=== PATIENT | male | born 1950 | race Caucasian/White ===

== ENCOUNTER 2021-03-26 15:45 | Inpatient (IN) | payer MEDICARE ==
[2021-03-26] MEDS ORDERED: solu-MEDROL 125 MG, Sterile H2O 10 ml 2 ML IV ONE ×2 (16:14)
[2021-03-26 16:21] LABS: Hematocrit 37.6 % (42-50); Hemoglobin 12.9 gm/dl (12.5-18.0); Mean Cell Volume 88.1 fl (78-100); Mean Corpuscular Hemoglobin 30.2 pg (26-32); Mean Corpuscular Hgb Concent. 34.3 g/dl (32-36); Platelet Count 197 K/mm3 (150-450); Red Blood Count 4.27 M/mm3 (4.1-5.6); Red Cell Distribution Width 14.5 % (11.5-14.0); White Blood Count 15.7 K/mm3 (4.0-10.5)
[2021-03-26] MEDS ORDERED: Sterile H2O 10 ml IJ ONE (16:21)
[2021-03-26] MEDS ORDERED: solu-MEDROL ONE (16:21)
[2021-03-26 16:39] LABS: ALBUMIN 3.1 g/dL (3.5-5.0); ANION GAP 14.2 MEQ/L (5-15); BILIRUBIN,TOTAL 1.1 mg/dL (0.2-1.3); Calcium 8.8 mg/dL (8.4-10.2); Creatinine 1 1.55 mg/dL (0.66-1.25); EST GLOMERULAR FILTRATION RATE 47.3 ML/MIN; Potassium 3.3 mmol/L (3.5-5.1); Total Protein 5.9 g/dL (6.3-8.2)
[2021-03-26 17:19] LABS: BAND 2 % (0.0-2.0); Lymphocytes 1 % (24-44); Monocyte 5 % (0.0-12.0); Neutrophils 92 % (36.-66.); Total Cells Counted 100
[2021-03-26 17:20] LABS: Platelet Estimate NORMAL (NORMAL)
--- NOTE | 2021-03-26 19:20 | ERPHSYRPT ---
- History of Present Illness Time Seen by Provider: 03/26/21 15:50 Source: patient Exam Limitations: no limitations Patient Subjective Stated Complaint: Pt states "I have been short of breath for a couple of days now." Triage Nursing Assessment: Pt presented alert and oriented X3, skin wpd Pt ambulates with an upright steady gait, able to speak in clear full sentences pt slightly tachypneic. Physician History: Patient is a 70-year-old male presents to our ED for evaluation of shortness of breath that has been ongoing for 2 days. Shortness of breath is associated with a cough and generalized weakness. Upon arrival patient was wheezing. Patient denies fevers. Patient had a home Covid test that was negative. Patient symptoms are progressive. Symptoms are moderate in intensity. No specific worsening improving factors. Patient voices no other complaints concerns at this time. Timing/Duration: day(s) (2 days) Activities at Onset: activity Severity of Dyspnea-Max: moderate Severity of Dyspnea-Current: mild Possible Cause: unknown cause (Patient has history of COPD. Patient believes he is having exacerbation.) Allergies/Adverse Reactions: No Known Drug Allergies Allergy (Verified 03/26/21 15:53) Home Medications: Diltiazem HCl [Dilt-Xr] 180 mg PO DAILY 03/26/21 [History] Losartan Potassium 100 mg PO DAILY 03/26/21 [History] Pravastatin Sodium 40 mg PO DAILY 03/26/21 [History] Tizanidine HCl 4 mg [Zanaflex 4 MG] 4 mg PO DAILY 03/26/21 [History] Hx Tetanus, Diphtheria Vaccination/Date Given: No Hx Influenza Vaccination/Date Given: Yes Hx Pneumococcal Vaccination/Date Given: No Immunizations Up to Date: Yes Travel Risk - International Travel Have you traveled outside of the country in past 3 weeks: No - Coronavirus Screening Are you exhibiting any of the following symptoms?: No Close contact with a COVID-19 positive Pt in past 14-21 Days: No - Vaccine Status Have you recieved a Covid-19 vaccination: Yes Metal Gauge Maker: Moderna - Vaccination Dates Date of 2cond Vaccination (if applicable): 10/07/2020 - Review of Systems Constitutional: No Symptoms, No Fever, No Chills Eyes: No Symptoms Ears, Nose, & Throat: No Symptoms Respiratory: No Symptoms, No Cough, No Dyspnea Cardiac: No Symptoms, No Chest Pain, No Edema, No Syncope Abdominal/Gastrointestinal: No Symptoms, No Abdominal Pain, No Nausea, No Vom iting, No Diarrhea Genitourinary Symptoms: No Symptoms, No Dysuria Musculoskeletal: No Symptoms, No Back Pain, No Neck Pain Skin: No Symptoms, No Rash Neurological: No Symptoms, No Dizziness, No Focal Weakness, No Sensory Changes Psychological: No Symptoms Endocrine: No Symptoms Hematologic/Lymphatic: No Symptoms Immunological/Allergic: No Symptoms All Other Systems: Reviewed and Negative - Past Medical History Pertinent Past Medical History: Yes Neurological History: No Pertinent History ENT History: No Pertinent History Cardiac History: Coronary Artery Disease, Hypertension Respiratory History: COPD Endocrine Medical History: No Pertinent History Musculoskeletal History: No Pertinent History GI Medical History: No Pertinent History History: No Pertinent History Psycho-Social History: No Pertinent History Male Reproductive Disorders: No Pertinent History - Past Surgical History Past Surgical History: Yes Other Surgical History: cabg. prostate - Social History Smoking Status: Former smoker Exposure to second hand smoke: Yes Drug Use: none Patient Lives Alone: No - Nursing Vital Signs Nursing Vital Signs: Initial Vital Signs Temperature 97.8 F 03/26/21 15:45 Pulse Rate 110 H 03/26/21 15:45 Respiratory Rate 24 03/26/21 15:45 Blood Pressure 118/70 03/26/21 15:45 O2 Sat by Pulse Oximetry 90 L 03/26/21 15:45 Pain Scale Pain Intensity 0 - Physical Exam General Appearance: no apparent distress, alert Eye Exam: PERRL/EOMI Neck Exam: normal inspection, supple Respiratory Exam: airway intact, diminished breath sounds, wheezing Cardiovascular/Chest Exam: normal heart sounds, regular rate/rhythm Abdominal/Gastrointestinal Exam: soft, No tenderness, No distention, No mass Extremity Exam: non-tender, normal range of motion, normal inspection, no calf tenderness, no pedal edema Neurologic Exam: alert, oriented x 3, cooperative, cashier greeter II-XII nml as tested, sensation nml, No motor deficits Skin Exam: normal color, warm, No dry Lymphatic Exam: No adenopathy SpO2 Interpretation: normal SpO2: 93 O2 Delivery: Room Air - Course Nursing assessment & vital signs reviewed: Yes EKG Interpreted by Me: RATE (110), Sinus Tach, NORMAL AXIS, NORMAL INTERVALS - CT Exams Chest CT Interpretation: Tele-radiologist Report (No comps. Negative for PE. Advanced emphysema. Multifocal left lung consolidating and nonconsolidating airspace disease with small effusion.) Ordered Tests: Active Orders 24 hr Category Date Time Status Commercial Singer STAT Care 03/26/21 16:13 Active EKG-ER Only STAT Care 03/26/21 16:12 Active IV Insertion STAT Care 03/26/21 16:12 Active Pulse Oximetry (ED) STAT Care 03/26/21 16:12 Active CHEST WITH CONTRAST [CT] Stat Exams 03/26/21 17:16 Taken BLOOD CULTURE Stat Lab 03/26/21 16:25 Received CBC W DIFF Stat Lab 03/26/21 16:12 Completed CMP Stat Lab 03/26/21 16:12 Completed D-DIMER QUANTITATIVE Stat Lab 03/26/21 16:12 Completed Manual Differential NC Stat Lab 03/26/21 16:12 Completed NT PRO BNP Stat Lab 03/26/21 16:12 Completed TROPONIN Q3H Lab 03/26/21 16:15 Completed TROPONIN Q3H Lab 03/26/21 19:15 Completed TROPONIN Q3H Lab 03/26/21 22:15 Ordered TROPONIN Q3H Lab 03/27/21 01:15 Ordered TROPONIN Q3H Lab 03/27/21 04:15 Ordered Respiratory Therapy Assessment DAILY RT 03/26/21 21:43 Active Transfer Order Routine Transfer 03/26/21 Ordered Medication Summary Generic Name Dose Route Start Last Admin Trade Name Freq PRN Reason Stop Dose Admin Azithromycin / Sodium Chloride 250 mls @ 125 mls/hr 03/26/21 20:08 IV 03/26/21 22:07 STAT ONE Discontinued Medications Generic Name Dose Route Start Last Admin Trade Name Freq PRN Reason Stop Dose Admin Albuterol/Ipratropium 3 ml 03/26/21 19:30 03/26/21 20:10 Duoneb 0.5-3 Mg/3 Ml Neb IH 03/26/21 19:31 3 ml STAT ONE Administration Albuterol/Ipratropium Confirm 03/26/21 20:23 Duoneb 0.5-3 Mg/3 Ml Neb Administered 03/26/21 20:24 Dose 3 ml IH .STK-MED ONE Methylprednisolone Sodium 0 mg 03/26/21 16:14 03/26/21 16:24 Succinate 125 mg/ Sterile IV 03/26/21 16:15 125 mg Water 2 ml STAT ONE Administration Ceftriaxone Sodium/Dextrose 2 g in 50 mls @ 100 mls/hr 03/26/21 20:08 03/26/21 20:29 Rocephin 2 Gm-D5w 50ml Bag IV 03/26/21 20:37 100 mls/hr STAT STA 100 mls/hr Administration Ceftriaxone Sodium/Dextrose Confirm 03/26/21 20:27 Rocephin 2 Gm-D5w 50ml Bag Administered 03/26/21 20:28 Dose 2 g in 50 mls @ ud IV .STK-MED ONE Methylprednisolone Sodium Succinate Confirm 03/26/21 16:21 Solu-Medrol Administered 03/26/21 16:22 Dose 125 mg .ROUTE .STK-MED ONE Potassium Chloride 40 meq 03/26/21 22:12 Klor Con 10 Meq PO 03/26/21 22:13 STAT ONE Sterile Water Confirm 03/26/21 16:21 Sterile H2o 10 Ml Administered 03/26/21 16:22 Dose 10 ml IJ .STK-MED ONE Lab/Rad Data: Laboratory Result Diagrams 03/26/21 16:12 03/26/21 16:12 Laboratory Results 03/26/21 03/26/21 03/26/21 Range/Units 20:20 19:15 16:15 WBC (4.0-10.5) K/mm3 RBC (4.1-5.6) M/mm3 Hgb (12.5-18.0) gm/dl Hct (42-50) % MCV (78-100) fl MCH (26-32) pg MCHC (32-36) g/dl RDW (11.5-14.0) % Plt Count (150-450) K/mm3 MPV (7.5-11.0) fl Segmented Neutrophils (36.-66.) % Band Neutrophils (0.0-2.0) % Lymphocytes (Manual) (24-44) % Monocytes (Manual) (0.0-12.0) % Platelet Estimate (NORMAL) RBC Morphology D-Dimer (215-500) ng/mL Sodium (137-145) mmol/L Potassium (3.5-5.1) mmol/L Chloride (98-107) mmol/L Carbon Dioxide (22-30) mmol/L Anion Gap (5-15) MEQ/L BUN (9-20) mg/dL Creatinine (0.66-1.25) mg/dL Estimated GFR ML/MIN Glucose (74-106) mg/dL Calcium (8.4-10.2) mg/dL Total Bilirubin (0.2-1.3) mg/dL AST (17-59) U/L ALT (0-50) U/L Alkaline Phosphatase (38-126) U/L Troponin I < 0.012 < 0.012 (0.000-0.034) ng/mL NT-Pro-B Natriuret Pep (0-900) pg/mL Serum Total Protein (6.3-8.2) g/dL Albumin (3.5-5.0) g/dL SARS-CoV-2 (PCR) NEGATIVE (NEGATIVE) 03/26/21 03/26/21 03/26/21 Range/Units 16:12 16:12 16:12 WBC 15.7 H (4.0-10.5) K/mm3 RBC 4.27 (4.1-5.6) M/mm3 Hgb 12.9 (12.5-18.0) gm/dl Hct 37.6 L (42-50) % MCV 88.1 (78-100) fl MCH 30.2 (26-32) pg MCHC 34.3 (32-36) g/dl RDW 14.5 H (11.5-14.0) % Plt Count 197 (150-450) K/mm3 MPV 9.0 (7.5-11.0) fl Segmented Neutrophils 92 H (36.-66.) % Band Neutrophils 2 (0.0-2.0) % Lymphocytes (Manual) 1 L (24-44) % Monocytes (Manual) 5 (0.0-12.0) % Platelet Estimate NORMAL (NORMAL) RBC Morphology NORMAL D-Dimer 2155 H* (215-500) ng/mL Sodium 129 L (137-145) mmol/L Potassium 3.3 L (3.5-5.1) mmol/L Chloride 101 (98-107) mmol/L Carbon Dioxide 17 L (22-30) mmol/L Anion Gap 14.2 (5-15) MEQ/L BUN 33 H (9-20) mg/dL Creatinine 1.55 H (0.66-1.25) mg/dL Estimated GFR 47.3 ML/MIN Glucose 142 H (74-106) mg/dL Calcium 8.8 (8.4-10.2) mg/dL Total Bilirubin 1.10 (0.2-1.3) mg/dL AST 95 H (17-59) U/L ALT 37 (0-50) U/L Alkaline Phosphatase 67 (38-126) U/L Troponin I (0.000-0.034) ng/mL NT-Pro-B Natriuret Pep 662 (0-900) pg/mL Serum Total Protein 5.9 L (6.3-8.2) g/dL Albumin 3.1 L (3.5-5.0) g/dL SARS-CoV-2 (PCR) (NEGATIVE) - Progress Progress: improved Air Movement: good Progress Note: Case discussed with Dr. Winchester who accepts admission to observation. Patient is Covid negative. Patient treated for COPD exacerbation. CTA negative for PE. However there is airspace disease consistent with pneumonia. Antibiotics infused. Patient reassessed he feels much better. Patient agrees to admission to [facility] for further evaluation and treatment. Portions of this note were created with voice recognition technology. There may be grammatical, spelling, punctuation or sound alike errors 03/26/21 22:11 Hyponatremia and hypokalemia. Patient received oral dose of potassium and IV fluids. Troponin negative x2. 03/26/21 22:14 03/26/21 22:14 Blood Culture(s) Obtained: Yes Antibiotics given: Yes Discussed with : Reji Will see patient in: hospital (observation) Counseled pt/family regarding: lab results, diagnosis, rad results - Departure Departure Disposition: Observation Clinical Impression: Pneumonia, COPD exacerbation, Pleural effusion, Hypokalemia, Leukocytosis, Hyponatremia Condition: Stable Critical Care Time: No Referrals: CAREY WINCHESTER [Primary Care Provider] - Instructions: Chronic Obstructive Pulmonary Disease
[2021-03-26] MEDS ORDERED: DUONEB 0.5-3 MG/3 ml Neb IH ONE ×2 (19:30→20:23)
[2021-03-26] MEDS ORDERED: ZITHROMAX IV*** 0 MG in Sodium Chloride 0.9% 250 ML 250 ML IV ONE (20:08)
[2021-03-26] MEDS ORDERED: ROCEPHIN 2 Gm-D5w 50ML BAG** 2 G/50 ML IVPB IV STA (20:08)
[2021-03-26] MEDS ORDERED: ROCEPHIN 2 Gm-D5w 50ML BAG** 2 G/50 ML IVPB IV ONE (20:27)
[2021-03-26] MEDS ORDERED: Klor Con 10 MEQ PO ONE ×2 (22:12→22:15)
[2021-03-26] MEDS ORDERED: Sodium Chloride 0.9% 1000 ML 1,000 ML IV SCH (22:15)
[2021-03-26] MEDS: DUONEB 0.5-3 MG/3 ml Neb IH SCH (23:29)
[2021-03-27] MEDS ORDERED: Sterile H2O 10 ml IJ ONE ×2 (00:51→06:32)
[2021-03-27] MEDS ORDERED: solu-MEDROL ONE ×2 (00:51→06:32)
[2021-03-27] MEDS: solu-MEDROL 60 MG, Sterile H2O 10 ml 2 ML IV SCH ×8 (00:59→18:11)
[2021-03-27] MEDS: ENOXAPARIN SODIUM SQ SCH ×2 (01:33→09:52)
[2021-03-27] MEDS: DUONEB 0.5-3 MG/3 ml Neb IH SCH ×6 (03:19→23:10)
[2021-03-27 06:26] LABS: Hematocrit 38.6 % (42-50); Hemoglobin 13.2 gm/dl (12.5-18.0); Mean Cell Volume 89.1 fl (78-100); Mean Corpuscular Hemoglobin 30.5 pg (26-32); Mean Corpuscular Hgb Concent. 34.2 g/dl (32-36); Mean Platelet Volume 9.1 fl (7.5-11.0); Platelet Count 184 K/mm3 (150-450); Red Blood Count 4.33 M/mm3 (4.1-5.6); Red Cell Distribution Width 14.9 % (11.5-14.0); White Blood Count 11.5 K/mm3 (4.0-10.5)
[2021-03-27 06:58] LABS: ALBUMIN 2.9 g/dL (3.5-5.0); ALKALINE PHOSPHATASE 69 U/L (38-126); ANION GAP 12.8 MEQ/L (5-15); BLOOD UREA NITROGEN 29 mg/dL (9-20); CHLORIDE 105 mmol/L (98-107); Calcium 8.8 mg/dL (8.4-10.2); Carbon Dioxide 20 mmol/L (22-30); Creatinine 1 1.18 mg/dL (0.66-1.25); EST GLOMERULAR FILTRATION RATE > 60.0 ML/MIN; Glucose 169 mg/dL (74-106); Potassium 3.8 mmol/L (3.5-5.1); SGOT/AST 45 U/L (17-59); SGPT/ALT 38 U/L (0-50); SODIUM 134 mmol/L (137-145); Total Protein 5.7 g/dL (6.3-8.2)
[2021-03-27] MEDS: PATIENT OWN MEDICATION IH SCH ×2 (07:00→17:53)
[2021-03-27] MEDS ORDERED: Zithromax 500 MG/ 250 ML NaCl Premix 500 MG/250 ML IVPB IV SCH (07:00)
[2021-03-27] MEDS ORDERED: Zithromax 500 MG/ 250 ML NaCl Premix 500 MG/250 ML IVPB IV ONE (07:00)
--- NOTE | 2021-03-27 07:53 | PCM.HP ---
History of Present Illness - Chief Complaint Chief Complaint: COPD exacerbation, pneumaonia, hypokalemia, hyponatremia, l eukocytosis, ple History of Present Illness: is a 70 year old male patient of Dr Winchester who presented to the ER with a several day history of shortness of breath, wheezing and cough with sputum production, unsure if sputum is clear. no fever, not on oxygen, improved since admission. - Review of Systems Constitutional: No Fever, No Chills Respiratory: Cough, Short Of Breath Cardiac: No Symptoms Abdominal/Gastrointestinal: No Abdominal Pain, No Nausea, No Vomiting, No Diarrhea Genitourinary Symptoms: No Dysuria All Other Systems: Reviewed and Negative Medications & Allergies Home Medications: Home Medication List Diltiazem HCl [Dilt-Xr] 180 mg PO DAILY 03/26/21 [History Confirmed 03/26/21] Losartan Potassium 100 mg PO DAILY 03/26/21 [History Confirmed 03/26/21] Allergies/Adverse Reactions: Allergies Allergy/AdvReac Type Severity Reaction Status Date / Time No Known Drug Allergies Allergy Verified 03/26/21 15:53 - Past Medical History Past Medical History: Yes Neurological History: No Pertinent History ENT History: No Pertinent History Cardiac History: Coronary Artery Disease, Hypertension Respiratory History: COPD Endocrine Medical History: No Pertinent History Musculoskelatal History: No Pertinent History GI Medical History: No Pertinent History History: No Pertinent History Pyscho-Social History: No Pertinent History Male Reproductive Disorders: No Pertinent History - Past Surgical History Past Surgical History: Yes Neuro Surgical History: No Pertinent History Cardiac History: CABG Respiratory Surgery: No Pertinent History GI Surgical History: No Pertinent History Genitourinary Surgical Hx: No Pertinent History Musculskeletal Surgical Hx: No Pertinent History Male Surgical History: No Pertinent History Other Surgical History: cabg. prostate - Social History Smoking Status: Former smoker How long have you smoked: 50 yrs Exposure to second hand smoke: Yes Alcohol: Rarely Drug Use: none - Physical Exam Vital Signs: Vital Signs - 24 hr Temp Pulse Resp BP Pulse Ox 03/27/21 06:53 85 16 94 L 03/27/21 05:04 97.4 F 82 18 98/52 95 03/27/21 04:00 98.0 F 74 124/64 90 L 03/26/21 23:39 90 L 03/26/21 23:32 74 16 90 L 03/26/21 23:15 98.0 F 73 28 H 124/64 95 03/26/21 22:18 93 L 03/26/21 20:15 72 18 95 03/26/21 20:00 71 20 95/61 95 03/26/21 19:00 80 20 90/57 98 03/26/21 17:16 90 24 81/52 93 L 03/26/21 16:20 94 L 03/26/21 15:45 97.8 F 110 H 24 118/70 90 L General Appearance: no apparent distress, alert Neurologic Exam: alert, oriented x 3, cooperative, normal mood/affect, nml cerebellar function, nml station & gait, sensation nml, No motor deficits Respiratory Exam: prolonged expirations, rhonchi Cardiovascular Exam: regular rate/rhythm, normal heart sounds, normal peripheral pulses Gastrointestinal/Abdomen Exam: soft, normal bowel sounds, No tenderness, No mass Extremity Exam: normal inspection, normal range of motion, pelvis stable Skin Exam: normal color, warm, dry, No rash Results - Labs Lab/Micro Results: Lab Results-Last 24 Hours 03/26/21 03/26/21 03/26/21 Range/Units 16:12 16:12 16:12 WBC 15.7 H (4.0-10.5) K/mm3 RBC 4.27 (4.1-5.6) M/mm3 Hgb 12.9 (12.5-18.0) gm/dl Hct 37.6 L (42-50) % MCV 88.1 (78-100) fl MCH 30.2 (26-32) pg MCHC 34.3 (32-36) g/dl RDW 14.5 H (11.5-14.0) % Plt Count 197 (150-450) K/mm3 MPV 9.0 (7.5-11.0) fl Segmented Neutrophils 92 H (36.-66.) % Band Neutrophils 2 (0.0-2.0) % Lymphocytes (Manual) 1 L (24-44) % Monocytes (Manual) 5 (0.0-12.0) % Platelet Estimate NORMAL (NORMAL) RBC Morphology NORMAL D-Dimer 2155 H* (215-500) ng/mL Sodium 129 L (137-145) mmol/L Potassium 3.3 L (3.5-5.1) mmol/L Chloride 101 (98-107) mmol/L Carbon Dioxide 17 L (22-30) mmol/L Anion Gap 14.2 (5-15) MEQ/L BUN 33 H (9-20) mg/dL Creatinine 1.55 H (0.66-1.25) mg/dL Estimated GFR 47.3 ML/MIN Glucose 142 H (74-106) mg/dL Calcium 8.8 (8.4-10.2) mg/dL Total Bilirubin 1.10 (0.2-1.3) mg/dL AST 95 H (17-59) U/L ALT 37 (0-50) U/L Alkaline Phosphatase 67 (38-126) U/L Troponin I (0.000-0.034) ng/mL NT-Pro-B Natriuret Pep 662 (0-900) pg/mL Serum Total Protein 5.9 L (6.3-8.2) g/dL Albumin 3.1 L (3.5-5.0) g/dL SARS-CoV-2 (PCR) (NEGATIVE) 03/26/21 03/26/21 03/26/21 Range/Units 16:15 19:15 20:20 WBC (4.0-10.5) K/mm3 RBC (4.1-5.6) M/mm3 Hgb (12.5-18.0) gm/dl Hct (42-50) % MCV (78-100) fl MCH (26-32) pg MCHC (32-36) g/dl RDW (11.5-14.0) % Plt Count (150-450) K/mm3 MPV (7.5-11.0) fl Segmented Neutrophils (36.-66.) % Band Neutrophils (0.0-2.0) % Lymphocytes (Manual) (24-44) % Monocytes (Manual) (0.0-12.0) % Platelet Estimate (NORMAL) RBC Morphology D-Dimer (215-500) ng/mL Sodium (137-145) mmol/L Potassium (3.5-5.1) mmol/L Chloride (98-107) mmol/L Carbon Dioxide (22-30) mmol/L Anion Gap (5-15) MEQ/L BUN (9-20) mg/dL Creatinine (0.66-1.25) mg/dL Estimated GFR ML/MIN Glucose (74-106) mg/dL Calcium (8.4-10.2) mg/dL Total Bilirubin (0.2-1.3) mg/dL AST (17-59) U/L ALT (0-50) U/L Alkaline Phosphatase (38-126) U/L Troponin I < 0.012 < 0.012 (0.000-0.034) ng/mL NT-Pro-B Natriuret Pep (0-900) pg/mL Serum Total Protein (6.3-8.2) g/dL Albumin (3.5-5.0) g/dL SARS-CoV-2 (PCR) NEGATIVE (NEGATIVE) 03/26/21 03/27/21 03/27/21 Range/Units 21:50 05:00 05:20 WBC 11.5 H (4.0-10.5) K/mm3 RBC 4.33 (4.1-5.6) M/mm3 Hgb 13.2 (12.5-18.0) gm/dl Hct 38.6 L (42-50) % MCV 89.1 (78-100) fl MCH 30.5 (26-32) pg MCHC 34.2 (32-36) g/dl RDW 14.9 H (11.5-14.0) % Plt Count 184 (150-450) K/mm3 MPV 9.1 (7.5-11.0) fl Segmented Neutrophils (36.-66.) % Band Neutrophils (0.0-2.0) % Lymphocytes (Manual) (24-44) % Monocytes (Manual) (0.0-12.0) % Platelet Estimate (NORMAL) RBC Morphology D-Dimer (215-500) ng/mL Sodium 134 L (137-145) mmol/L Potassium 3.8 (3.5-5.1) mmol/L Chloride 105 (98-107) mmol/L Carbon Dioxide 20 L (22-30) mmol/L Anion Gap 12.8 (5-15) MEQ/L BUN 29 H (9-20) mg/dL Creatinine 1.18 (0.66-1.25) mg/dL Estimated GFR > 60.0 ML/MIN Glucose 169 H (74-106) mg/dL Calcium 8.8 (8.4-10.2) mg/dL Total Bilirubin 0.60 (0.2-1.3) mg/dL AST 45 (17-59) U/L ALT 38 (0-50) U/L Alkaline Phosphatase 69 (38-126) U/L Troponin I < 0.012 (0.000-0.034) ng/mL NT-Pro-B Natriuret Pep (0-900) pg/mL Serum Total Protein 5.7 L (6.3-8.2) g/dL Albumin 2.9 L (3.5-5.0) g/dL SARS-CoV-2 (PCR) (NEGATIVE) - Radiology Impressions Radiology Exams & Impressions: Radiology Procedures Category Date Time Status CHEST WITH CONTRAST [CT] Stat Exams 03/26/21 17:16 Taken - Other Procedures and Tests Respiratory Therapy 03/26/21 21:43 Respiratory Therapy Assessment DAILY 03/27/21 07:05 Respiratory MDI BID Assessment/Plan (1) Pneumonia Current Visit: Yes Status: Acute Assessment & Plan: continue rocephin/zithromax, nebs Code(s): J18.9 - PNEUMONIA, UNSPECIFIED ORGANISM (2) COPD exacerbation Current Visit: Yes Status: Acute Assessment & Plan: steroids and nebs, abx as above Code(s): J44.1 - CHRONIC OBSTRUCTIVE PULMONARY DISEASE W (ACUTE) EXACERBATION (3) Hypokalemia Current Visit: Yes Status: Acute Assessment & Plan: corrected on admission Code(s): E87.6 - HYPOKALEMIA (4) Hyponatremia Current Visit: Yes Status: Acute Assessment & Plan: resolving Code(s): E87.1 - HYPO-OSMOLALITY AND HYPONATREMIA
[2021-03-27] MEDS: Sodium Chloride 0.9% W/ 20 mEq KCl/LITER 1,000 ML IV SCH ×2 (08:24→18:49)
--- NOTE | 2021-03-27 08:46 | XRAY ---
Indication: Positive Covid 19. Elevated d-dimer. Multiple contiguous axial images obtained through the chest using 100 cc Isovue 370 contrast and PE protocol. Comparison: None There is good opacification of the pulmonary arteries to include the lobar and segmental branches. No pulmonary embolus. Heart not enlarged with CABG surgery. Aorta is moderately arteriosclerotic without aneurysm/dissection. No pathologic mediastinal/hilar lymphadenopathy. Lungs demonstrates diffuse advanced pulmonary emphysema with scattered fibrosis/scarring and tiny right upper lobe calcified granuloma. Left lung demonstrates diffuse multifocal consolidating and nonconsolidating airspace disease with small effusion. Bony thorax intact with sternotomy wires. Limited upper abdomen unremarkable. Impression: 1. Pulmonary emphysema. 2. Multifocal left lung consolidating/nonconsolidating airspace disease with small effusion. 3. Diffuse pulmonary emphysema.
[2021-03-27] MEDS: ROCEPHIN 1 Gm-D5w 50 ml Bag** 1 G/50 ML IVPB IV SCH (09:53)
[2021-03-27] MEDS: Cardizem CD 180 MG PO SCH (09:53)
[2021-03-27] MEDS ORDERED: NON-FORMULARY ITEM (Losartan Potassium [Losartan Potassium] 100 MG) PO SCH (10:00)
[2021-03-27] MEDS ORDERED: DILTIAZEM HCL 180 MG PO SCH (10:00)
[2021-03-27] MEDS: Cozaar 50 MG PO SCH (11:54)
[2021-03-28] MEDS: solu-MEDROL 60 MG, Sterile H2O 10 ml 2 ML IV SCH ×8 (01:50→18:22)
[2021-03-28] MEDS: DUONEB 0.5-3 MG/3 ml Neb IH SCH ×6 (02:51→23:56)
[2021-03-28] MEDS: Sodium Chloride 0.9% W/ 20 mEq KCl/LITER 1,000 ML IV SCH ×2 (04:38→18:22)
[2021-03-28 06:10] LABS: Hemoglobin 11.6 gm/dl (12.5-18.0); Mean Cell Volume 89.3 fl (78-100); Mean Corpuscular Hemoglobin 29.6 pg (26-32); Mean Corpuscular Hgb Concent. 33.1 g/dl (32-36); Mean Platelet Volume 9.4 fl (7.5-11.0); Platelet Count 199 K/mm3 (150-450); Red Blood Count 3.92 M/mm3 (4.1-5.6); White Blood Count 12.3 K/mm3 (4.0-10.5)
[2021-03-28 06:26] LABS: ANION GAP 11.9 MEQ/L (5-15); BLOOD UREA NITROGEN 19 mg/dL (9-20); CHLORIDE 110 mmol/L (98-107); Calcium 8.4 mg/dL (8.4-10.2); Carbon Dioxide 17 mmol/L (22-30); Creatinine 1 0.79 mg/dL (0.66-1.25); EST GLOMERULAR FILTRATION RATE > 60.0 ML/MIN; Glucose 144 mg/dL (74-106); MAGNESIUM 2.1 mg/dL (1.6-2.3); Potassium 3.5 mmol/L (3.5-5.1); SODIUM 136 mmol/L (137-145)
[2021-03-28] MEDS: PATIENT OWN MEDICATION IH SCH ×2 (07:05→17:51)
[2021-03-28 07:56] LABS: BAND 15 % (0.0-2.0); Lymphocytes 2 % (24-44); Monocyte 2 % (0.0-12.0); Neutrophils 81 % (36.-66.); Total Cells Counted 100
[2021-03-28 07:57] LABS: Platelet Estimate NORMAL (NORMAL); Toxic Granulation 1+
--- NOTE | 2021-03-28 08:05 | PCM.NOTE ---
Date and Time: 03/28/21 08 Subjective Assessment: patient continues to require oxygen, he is feeling some better. no new complaints Objective Exam General Appearance: no apparent distress, alert Respiratory Exam: diminished breath sounds, prolonged expirations, wheezing Cardiovascular Exam: regular rate/rhythm, normal heart sounds Gastrointestinal/Abdomen Exam: soft, No tenderness, No mass Extremity Exam: normal inspection, normal range of motion OBJECTIVE DATA Vital Signs: Vital Signs - 24 hr Temp Pulse Resp BP Pulse Ox 03/28/21 07:32 97.6 F 77 28 H 119/70 92 L 03/28/21 07:05 71 18 91 L 03/28/21 04:05 97.9 F 72 36 H 107/69 96 03/28/21 02:52 90 24 89 L 03/27/21 23:36 99.3 F 79 40 H 112/66 96 03/27/21 23:10 75 20 92 L 03/27/21 19:14 99.9 F 68 36 H 114/59 93 L 03/27/21 17:54 99 H 20 92 L 03/27/21 16:18 98.5 F 99 H 32 H 106/59 90 L 03/27/21 14:43 74 16 92 L 03/27/21 13:00 97.7 F 79 16 106/58 95 03/27/21 10:52 79 16 95 03/27/21 09:00 97.7 F 103 H 29 H 106/58 93 L Pain Assessment - Last Documented Pain Intensity 0 Intake and Output: Intake & Output 03/25/21 03/26/21 03/27/21 03/28/21 11:59 11:59 11:59 11:59 Intake Total 807 3097 Output Total 500 1650 Balance 307 1447 Weight 68.6 kg 67.4 kg Lab Results: Lab Results-Last 24 Hours 03/28/21 03/28/21 Range/Units 05:55 05:55 WBC 12.3 H (4.0-10.5) K/mm3 RBC 3.92 L (4.1-5.6) M/mm3 Hgb 11.6 L (12.5-18.0) gm/dl Hct 35.0 L (42-50) % MCV 89.3 (78-100) fl MCH 29.6 (26-32) pg MCHC 33.1 (32-36) g/dl RDW 15.0 H (11.5-14.0) % Plt Count 199 (150-450) K/mm3 MPV 9.4 (7.5-11.0) fl Segmented Neutrophils 81 H (36.-66.) % Band Neutrophils 15 H (0.0-2.0) % Lymphocytes (Manual) 2 L (24-44) % Monocytes (Manual) 2 (0.0-12.0) % Toxic Granulation 1+ Platelet Estimate NORMAL (NORMAL) RBC Morphology ABNORMAL Sodium 136 L (137-145) mmol/L Potassium 3.5 (3.5-5.1) mmol/L Chloride 110 H (98-107) mmol/L Carbon Dioxide 17 L (22-30) mmol/L Anion Gap 11.9 (5-15) MEQ/L BUN 19 (9-20) mg/dL Creatinine 0.79 (0.66-1.25) mg/dL Estimated GFR > 60.0 ML/MIN Glucose 144 H (74-106) mg/dL Calcium 8.4 (8.4-10.2) mg/dL Magnesium 2.1 (1.6-2.3) mg/dL Radiology Exams: Radiology Procedures Category Date Time Status CHEST WITH CONTRAST [CT] Stat Exams 03/26/21 17:16 Completed Assessment/Plan (1) Pneumonia Current Visit: Yes Status: Acute Assessment & Plan: continue rocephin/zithromax Code(s): J18.9 - PNEUMONIA, UNSPECIFIED ORGANISM (2) COPD exacerbation Current Visit: Yes Status: Acute Assessment & Plan: continue IV solu medrol and nebs with above abx therapy for pneumonia Code(s): J44.1 - CHRONIC OBSTRUCTIVE PULMONARY DISEASE W (ACUTE) EXACERBATION (3) Hypokalemia Current Visit: Yes Status: Acute Assessment & Plan: corrected Code(s): E87.6 - HYPOKALEMIA (4) Hyponatremia Current Visit: Yes Status: Acute Assessment & Plan: resolving Code(s): E87.1 - HYPO-OSMOLALITY AND HYPONATREMIA
[2021-03-28] MEDS: ROCEPHIN 1 Gm-D5w 50 ml Bag** 1 G/50 ML IVPB IV SCH (11:12)
[2021-03-28] MEDS: Zithromax 500 MG/ 250 ML NaCl Premix 500 MG/250 ML IVPB IV SCH (11:13)
[2021-03-28] MEDS: ENOXAPARIN SODIUM SQ SCH (11:16)
[2021-03-28] MEDS: Cardizem CD 180 MG PO SCH (11:16)
[2021-03-28] MEDS: Cozaar 50 MG PO SCH (11:17)
[2021-03-29] MEDS: solu-MEDROL 60 MG, Sterile H2O 10 ml 2 ML IV SCH ×4 (02:12→06:57)
[2021-03-29] MEDS: DUONEB 0.5-3 MG/3 ml Neb IH SCH ×6 (03:43→22:08)
[2021-03-29] MEDS: Sodium Chloride 0.9% W/ 20 mEq KCl/LITER 1,000 ML IV SCH ×2 (04:30→15:08)
[2021-03-29 05:29] LABS: Hematocrit 34.1 % (42-50); Hemoglobin 11.3 gm/dl (12.5-18.0); Mean Cell Volume 89.7 fl (78-100); Mean Corpuscular Hemoglobin 29.7 pg (26-32); Mean Corpuscular Hgb Concent. 33.1 g/dl (32-36); Mean Platelet Volume 9.6 fl (7.5-11.0); Platelet Count 230 K/mm3 (150-450); Red Cell Distribution Width 15.4 % (11.5-14.0); White Blood Count 13.6 K/mm3 (4.0-10.5)
[2021-03-29 05:55] LABS: ANION GAP 12.8 MEQ/L (5-15); BLOOD UREA NITROGEN 19 mg/dL (9-20); CHLORIDE 114 mmol/L (98-107); Calcium 8.5 mg/dL (8.4-10.2); Carbon Dioxide 17 mmol/L (22-30); Creatinine 1 0.72 mg/dL (0.66-1.25); EST GLOMERULAR FILTRATION RATE > 60.0 ML/MIN; Glucose 154 mg/dL (74-106); Potassium 3.7 mmol/L (3.5-5.1); SODIUM 140 mmol/L (137-145)
[2021-03-29] MEDS: PATIENT OWN MEDICATION IH SCH ×3 (07:14→17:12)
[2021-03-29 07:26] LABS: ANISOCYTOSIS 1+; BAND 12 % (0.0-2.0); Lymphocytes 2 % (24-44); Microcytosis 1+; Monocyte 2 % (0.0-12.0); Neutrophils 84 % (36.-66.); Platelet Estimate NORMAL (NORMAL); Total Cells Counted 100
--- NOTE | 2021-03-29 07:59 | PCM.NOTE ---
Date and Time: 03/29/21 0758 Subjective Assessment: patient doesn't feel too bad but states everyone keeps telling him his "breathing is rough" Objective Exam General Appearance: no apparent distress, thin Neurologic Exam: alert, oriented x 3 Respiratory Exam: accessory muscle use, prolonged expirations, wheezing Cardiovascular Exam: regular rate/rhythm, normal heart sounds Gastrointestinal/Abdomen Exam: soft, No tenderness, No mass Extremity Exam: normal inspection, normal range of motion OBJECTIVE DATA Vital Signs: Vital Signs - 24 hr Temp Pulse Resp BP Pulse Ox 03/29/21 07:20 80 18 91 L 03/29/21 04:00 98.2 F 89 32 H 124/69 91 L 03/29/21 03:44 81 24 91 L 03/28/21 23:56 80 20 93 L 03/28/21 23:37 98.5 F 84 28 H 137/76 92 L 03/28/21 19:51 98.3 F 83 18 125/58 93 L 03/28/21 17:53 78 16 95 03/28/21 16:00 98.3 F 86 16 135/70 92 L 03/28/21 14:25 83 16 91 L 03/28/21 12:00 97.2 F 86 16 111/58 97 03/28/21 10:50 92 H 16 98 Pain Assessment - Last Documented Pain Intensity 0 Intake and Output: Intake & Output 03/26/21 03/27/21 03/28/21 03/29/21 11:59 11:59 11:59 11:59 Intake Total 807 3217 4232 Output Total 500 1650 775 Balance 307 1567 3457 Weight 68.6 kg 67.4 kg Lab Results: Lab Results-Last 24 Hours 03/28/21 03/29/21 03/29/21 Range/Units 05:55 04:10 04:10 WBC 13.6 H (4.0-10.5) K/mm3 RBC 3.80 L (4.1-5.6) M/mm3 Hgb 11.3 L (12.5-18.0) gm/dl Hct 34.1 L (42-50) % MCV 89.7 (78-100) fl MCH 29.7 (26-32) pg MCHC 33.1 (32-36) g/dl RDW 15.4 H (11.5-14.0) % Plt Count 230 (150-450) K/mm3 MPV 9.6 (7.5-11.0) fl Absolute Granulocytes 13.0 H (1.4-6.9) Segmented Neutrophils 81 H 84 H (36.-66.) % Band Neutrophils 15 H 12 H (0.0-2.0) % Lymphocytes (Manual) 2 L 2 L (24-44) % Monocytes (Manual) 2 2 (0.0-12.0) % Toxic Granulation 1+ Platelet Estimate NORMAL NORMAL (NORMAL) RBC Morphology ABNORMAL ABNORMAL Anisocytosis 1+ Microcytosis 1+ Sodium 140 (137-145) mmol/L Potassium 3.7 (3.5-5.1) mmol/L Chloride 114 H (98-107) mmol/L Carbon Dioxide 17 L (22-30) mmol/L Anion Gap 12.8 (5-15) MEQ/L BUN 19 (9-20) mg/dL Creatinine 0.72 (0.66-1.25) mg/dL Estimated GFR > 60.0 ML/MIN Glucose 154 H (74-106) mg/dL Calcium 8.5 (8.4-10.2) mg/dL Multi-Disciplinary Progress Notes: Multi-Disciplinary Progress Notes 03/28/21 09:21 Case Management Note by Shelli Tony REVIEWED CHART- NO CHANGE IN DC PLANS AT THIS TIME Initialized on 03/28/21 09:21 - END OF NOTE Assessment/Plan (1) Pneumonia Current Visit: Yes Status: Acute Assessment & Plan: on rocephin/zithromax, most of his malfunction appears to copd exacerbation related in my opinion Code(s): J18.9 - PNEUMONIA, UNSPECIFIED ORGANISM (2) COPD exacerbation Current Visit: Yes Status: Acute Assessment & Plan: increase solu medrol from 60mg to 80mg IV q6 hrs, continue duonebs. patient still requiring oxygen, was not on any at home prior to admission. Code(s): J44.1 - CHRONIC OBSTRUCTIVE PULMONARY DISEASE W (ACUTE) EXACERBATION (3) Hypokalemia Current Visit: Yes Status: Acute Code(s): E87.6 - HYPOKALEMIA (4) Hyponatremia Current Visit: Yes Status: Acute Code(s): E87.1 - HYPO-OSMOLALITY AND HYPONATREMIA
[2021-03-29] MEDS: ROCEPHIN 1 Gm-D5w 50 ml Bag** 1 G/50 ML IVPB IV SCH (08:57)
[2021-03-29] MEDS: Zithromax 500 MG/ 250 ML NaCl Premix 500 MG/250 ML IVPB IV SCH (08:57)
[2021-03-29] MEDS: ENOXAPARIN SODIUM SQ SCH (09:01)
[2021-03-29] MEDS: Cardizem CD 180 MG PO SCH (09:01)
[2021-03-29] MEDS: Cozaar 50 MG PO SCH (09:04)
[2021-03-29] MEDS ORDERED: solu-MEDROL IV SCH (12:00)
[2021-03-29] MEDS: solu-MEDROL 80 MG, Sterile H2O 10 ml 2 ML IV SCH ×6 (12:23→23:34)
[2021-03-29] MEDS ORDERED: PROVENTIL 2.5 MG/3 ML NEB IH ONE (23:53)
[2021-03-30] MEDS ORDERED: Lasix 20 MG/2 ML ONE (00:05)
[2021-03-30] MEDS ORDERED: Ativan 1 MG ONE (00:05)
[2021-03-30] MEDS ORDERED: Lasix 20 MG/2 ML IV ONE (00:15)
[2021-03-30] MEDS ORDERED: Ativan 1 MG PO ONE (00:15)
[2021-03-30] MEDS ORDERED: PROVENTIL 2.5 MG/3 ML NEB IH PRN (00:16)
[2021-03-30 00:52] LABS: A-aADO2 560; ABG HEMOGLOBIN 14.7; ABG POTASSIUM 4.3 (3.5-5.1); ABG SITE RIGHT RADIAL; ALLEN TEST OK? YES; ARTERIAL BLOOD GAS BASE EXCESS -7.3 (-2.0-2.0); ARTERIAL BLOOD GAS FIO2 100 %; ARTERIAL BLOOD GAS PCO2 31 mmHg (35-45); ARTERIAL BLOOD GAS PO2 114 mmHg (75-100); ARTERIAL BLOOD GAS VENT MODE CPAP; ARTERIAL BLOOD GAS pH 7.35 (7.35-7.45); CARBOXYHEMOGLOBIN 1.1 % THgb (0.0-6.9); HCO3- 17.1 (22-28)
[2021-03-30] MEDS: DUONEB 0.5-3 MG/3 ml Neb IH SCH ×6 (02:30→23:20)
[2021-03-30] MEDS ORDERED: MORPHINE SULFATE 4 MG INJ IV PRN (03:57)
[2021-03-30] MEDS ORDERED: Lasix 40 MG/4 ML ONE (05:07)
[2021-03-30] MEDS ORDERED: Lasix 40 MG/4 ML IV ONE (05:15)
[2021-03-30] MEDS ORDERED: VERSED 5 MG/5 ML ONE ×2 (05:27→05:42)
[2021-03-30 05:40] LABS: ANION GAP 19.3 MEQ/L (5-15); BLOOD UREA NITROGEN 23 mg/dL (9-20); CHLORIDE 111 mmol/L (98-107); Calcium 8.7 mg/dL (8.4-10.2); Carbon Dioxide 18 mmol/L (22-30); Creatinine 1 0.86 mg/dL (0.66-1.25); EST GLOMERULAR FILTRATION RATE > 60.0 ML/MIN; Glucose 183 mg/dL (74-106); Hematocrit 43.4 % (42-50); Hemoglobin 14.1 gm/dl (12.5-18.0); Mean Cell Volume 92.1 fl (78-100); Mean Corpuscular Hemoglobin 29.9 pg (26-32); Mean Corpuscular Hgb Concent. 32.5 g/dl (32-36); Platelet Count 480 K/mm3 (150-450); Potassium 4.6 mmol/L (3.5-5.1); Red Blood Count 4.71 M/mm3 (4.1-5.6); Red Cell Distribution Width 16.5 % (11.5-14.0); SODIUM 144 mmol/L (137-145)
[2021-03-30 05:57] LABS: White Blood Count 50.6 K/mm3 (4.0-10.5)
[2021-03-30] MEDS ORDERED: SUBLIMAZE 100 MCG/2 ML IV ONE (06:00)
[2021-03-30] MEDS ORDERED: Heparin 5000 UNITS/0.5 ML (HIGH RISK MED) IV ONE (06:00)
[2021-03-30] MEDS ORDERED: VERSED 5 MG/5 ML IV ONE (06:00)
[2021-03-30] MEDS ORDERED: Nimbex 20MG/10 Ml Vial (HIGH RISK MED) IV ONE (06:00)
[2021-03-30] MEDS ORDERED: LOPRESSOR 5 MG/5 ML INJECTION IV ONE ×2 (06:00→06:54)
[2021-03-30] MEDS ORDERED: Quelicin Fliptop 200 MG/10 ML IV ONE (06:00)
[2021-03-30] MEDS ORDERED: NITRO-BID 2% UD PACKETS TOP ONE (06:00)
[2021-03-30 06:09] LABS: A-aADO2 546; ABG HEMOGLOBIN 13.9; ABG POTASSIUM 5.4 (3.5-5.1); ARTERIAL BLD GAS O2 SATURATION 91.8 % (95-100); ARTERIAL BLOOD GAS BASE EXCESS -15.3 (-2.0-2.0); ARTERIAL BLOOD GAS FIO2 100 %; ARTERIAL BLOOD GAS PCO2 68 mmHg (35-45); ARTERIAL BLOOD GAS PO2 82 mmHg (75-100); CARBOXYHEMOGLOBIN 0.9 % THgb (0.0-6.9); HCO3- 16.8 (22-28); HGB O2 SAT 90.5 g/dF (94-100); Methhemoglobin 0.4 % (1.4-1.5)
[2021-03-30 06:10] LABS: ABG SITE RIGHT BRACHIAL
[2021-03-30] MEDS ORDERED: Sodium Chloride 0.9% 250 ML 250 ML IV ONE (06:14)
[2021-03-30] MEDS ORDERED: Versed 50 MG/ 10 Ml MDV ONE (06:14)
[2021-03-30] MEDS ORDERED: SUBLIMAZE 100 MCG/2 ML ONE (06:18)
[2021-03-30] MEDS: PATIENT OWN MEDICATION IH SCH ×2 (06:25→20:05)
[2021-03-30] MEDS ORDERED: Heparin 5000 UNITS/0.5 ML (HIGH RISK MED) ONE (06:49)
[2021-03-30] MEDS ORDERED: NITRO-BID 2% UD PACKETS ONE (06:50)
[2021-03-30] MEDS ORDERED: Sodium Chloride 0.9% 1000 ML 1,000 ML ONE (06:51)
[2021-03-30] MEDS: Versed 50 MG/ 10 Ml MDV*** 50 MG in Sodium Chloride 0.9% 250 ML 240 ML IV PRN ×3 (07:31→23:45)
[2021-03-30] MEDS: Nimbex 200MG/20 Ml MDV (HIGH RISK MED)** 200 MG in Dextrose 5%/Water IV Soln. 250 ML 18... IV SCH (07:31)
[2021-03-30] MEDS: SUBLIMAZE 1000 Mcg/ 20 Ml*** 1,500 MCG in Sodium Chloride 0.9% 150 ML 120 ML IV SCH ×2 (07:38→23:44)
[2021-03-30] MEDS: solu-MEDROL 80 MG, Sterile H2O 10 ml 2 ML IV SCH ×8 (07:45→23:44)
[2021-03-30 08:17] LABS: A-aADO2 506; ABG HEMOGLOBIN 14.4; ARTERIAL BLD GAS TIDAL VOLUME 500 cc; ARTERIAL BLOOD GAS BASE EXCESS -11.4 (-2.0-2.0); ARTERIAL BLOOD GAS FIO2 100 %; ARTERIAL BLOOD GAS PO2 116 mmHg (75-100); ARTERIAL BLOOD GAS VENT MODE A/C; CARBOXYHEMOGLOBIN 1.1 % THgb (0.0-6.9); HCO3- 20.2 (22-28); HGB O2 SAT 96.4 g/dF (94-100); Methhemoglobin 0.5 % (1.4-1.5)
--- NOTE | 2021-03-30 08:17 | XRAY ---
Indication: Short of breath. Comparison: January 24, 2010 Portable chest again hyperinflated with new markedly diffuse bilateral consolidating/nonconsolidating airspace disease and tiny left effusion. 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 Bony thorax intact. Comment: Preliminary interpretation made by [facility]. No critical discrepancy.
[2021-03-30 08:18] LABS: ARTERIAL BLOOD GAS pH 7.05 (7.35-7.45)
[2021-03-30 08:19] LABS: ABG POTASSIUM 6.1 (3.5-5.1); ABG SITE RIGHT RADIAL; ALLEN TEST OK? YES; ARTERIAL BLOOD GAS PCO2 73 mmHg (35-45)
--- NOTE | 2021-03-30 08:19 | XRAY ---
Indication: Endotracheal tube placement. Comparison: Taken earlier in the day. Portable chest demonstrates new endotracheal tube tip 8 cm above tessie. Remaining chest unchanged again with diffuse bilateral consolidating/nonconsolidating airspace disease and tiny left effusion. 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 No new cardiopulmonary abnormalities. Comment: Preliminary interpretation made by [facility]. No critical discrepancy.
[2021-03-30] MEDS: Cozaar 50 MG PO SCH (08:29)
[2021-03-30] MEDS: Cardizem CD 180 MG PO SCH (08:29)
[2021-03-30] MEDS: ROCEPHIN 1 Gm-D5w 50 ml Bag** 1 G/50 ML IVPB IV SCH (09:05)
[2021-03-30] MEDS: Zithromax 500 MG/ 250 ML NaCl Premix 500 MG/250 ML IVPB IV SCH (09:05)
[2021-03-30 09:43] LABS: MAGNESIUM 2.2 mg/dL (1.6-2.3)
[2021-03-30 09:50] LABS: Potassium 5.7 mmol/L (3.5-5.1)
[2021-03-30 10:14] LABS: BAND 6 % (0.0-2.0); Lymphocytes 5 % (24-44); Monocyte 2 % (0.0-12.0); Neutrophils 87 % (36.-66.); Total Cells Counted 100
[2021-03-30 10:15] LABS: ANISOCYTOSIS 1+; Platelet Estimate NORMAL (NORMAL); Toxic Granulation 2+
--- NOTE | 2021-03-30 10:31 | PCM.NOTE ---
Date and Time: 03/30/21 1024 Subjective Assessment: Patient last 12-hour events noted. Since last night patient was started getting more and more short of breath. Patient was initially started on CPAP. Patient was given bronchodilator treatment every 4 hours. Patient was given Solu-Medrol 80 mg every 6. Patient was also given Lasix 40 mg. Around 6:00 in the morning patient suddenly become extremely short of breath and EKG was showing ST elevation. Patient was extremely hypoxic. So patient was intubated. Patient initial troponin was elevated to 0.287. Patient chest x-ray showing worsening infiltrate. - Review of Systems Constitutional: No Fever, No Chills Eyes: No Symptoms Ears, Nose, & Throat: No Symptoms Respiratory: Orthopnea, Short Of Breath, Wheezing, No Cough Cardiac: Orthopnea, PND, No Chest Pain, No Edema, No Syncope Abdominal/Gastrointestinal: No Abdominal Pain, No Nausea, No Vomiting, No Diarrhea Genitourinary Symptoms: No Dysuria Musculoskeletal: No Back Pain, No Neck Pain Skin: No Rash Neurological: No Dizziness, No Focal Weakness, No Sensory Changes Psychological: No Symptoms Endocrine: No Symptoms Hematologic/Lymphatic: No Symptoms Immunological/Allergic: No Symptoms Objective Exam General Appearance: severe distress Neurologic Exam: disoriented Skin Exam: normal color Eye Exam: PERRL Ears, Nose, Throat Exam: normal ENT inspection Neck Exam: normal inspection Respiratory Exam: diminished breath sounds, other (Patient on ventilator) Cardiovascular Exam: tachycardia Gastrointestinal/Abdomen Exam: soft Extremity Exam: normal inspection OBJECTIVE DATA Vital Signs: Vital Signs - 24 hr Temp Pulse Resp BP BP Pulse Ox 03/30/21 10:09 114 H 18 95/73 97 03/30/21 09:02 114 H 18 98/77 97 03/30/21 09:00 115 H 98/76 03/30/21 08:01 108 H 107/84 03/30/21 07:54 115 H 14 115/86 96 03/30/21 07:22 103 H 107/63 03/30/21 07:14 108 H 14 99/60 96 03/30/21 06:40 123 H 14 94 L 03/30/21 06:25 94 L 03/30/21 06:13 94 L 03/30/21 04:00 98.5 F 118 H 32 H 120/81 95 03/30/21 03:00 95 03/30/21 02:40 110 H 32 H 99 03/30/21 00:55 99 03/30/21 00:00 97.6 F 91 H 26 H 159/87 91 L 03/29/21 23:55 129 H 40 H 82 L 03/29/21 22:35 92 L 03/29/21 22:10 90 26 H 90 L 03/29/21 20:00 97.6 F 83 24 147/82 93 L 03/29/21 17:12 80 18 96 03/29/21 16:00 97.3 F 94 H 22 168/88 92 L 03/29/21 12:00 98.0 F 83 16 141/67 95 03/29/21 11:01 81 18 93 L Pain Assessment - Last Documented Pain Intensity 0 Pain Scale Used 0-10 Pain Scale Intake and Output: Intake & Output 03/27/21 03/28/21 03/29/21 03/30/21 11:59 11:59 11:59 11:59 Intake Total 807 3217 4472 3271 Output Total 500 1650 1225 1700 Balance 307 1567 3247 1571 Weight 68.6 kg 67.4 kg Lab Results: Lab Results-Last 24 Hours 03/30/21 03/30/21 03/30/21 Range/Units 00:44 00:49 04:00 WBC (4.0-10.5) K/mm3 RBC (4.1-5.6) M/mm3 Hgb (12.5-18.0) gm/dl Hct (42-50) % MCV (78-100) fl MCH (26-32) pg MCHC (32-36) g/dl RDW (11.5-14.0) % Plt Count (150-450) K/mm3 MPV (7.5-11.0) fl Segmented Neutrophils (36.-66.) % Band Neutrophils (0.0-2.0) % Lymphocytes (Manual) (24-44) % Monocytes (Manual) (0.0-12.0) % Toxic Granulation Platelet Estimate (NORMAL) RBC Morphology Anisocytosis Smear Path Review D-Dimer (215-500) ng/mL Puncture Site RIGHT RADIAL pCO2 31 L (35-45) mmHg pO2 114 H (75-100) mmHg Base Excess -7.3 L (-2.0-2.0) O2 Saturation 97.0 (94-100) g/dF ABG pH 7.35 (7.35-7.45) ABG HCO3 17.1 L (22-28) ABG O2 Sat (Measured) 99.0 (95-100) % Julian Test YES A-a Gradient 560 a/A Ratio 0.17 Hemoglobin 14.7 Carboxyhemoglobin 1.1 (0.0-6.9) % THgb Methemoglobin 1.0 L (1.4-1.5) % Potassium 4.3 (3.5-5.1) Temperature 37.0 C POC O2 Flow Rate 100 % Vent Mode CPAP Tidal Volume cc PEEP 8.0 cmH2O Sodium (137-145) mmol/L Chloride (98-107) mmol/L Carbon Dioxide (22-30) mmol/L Anion Gap (5-15) MEQ/L BUN (9-20) mg/dL Creatinine (0.66-1.25) mg/dL Estimated GFR ML/MIN Glucose (74-106) mg/dL Lactic Acid 3.1 H (0.4-2.0) Calcium (8.4-10.2) mg/dL Magnesium (1.6-2.3) mg/dL Troponin I (0.000-0.034) ng/mL Procalcitonin 0.223 H (0.030-0.080) ng/mL SARS-CoV-2 (PCR) (NEGATIVE) 03/30/21 03/30/21 03/30/21 Range/Units 05:00 05:03 05:03 WBC 50.6 H* (4.0-10.5) K/mm3 RBC 4.71 (4.1-5.6) M/mm3 Hgb 14.1 D (12.5-18.0) gm/dl Hct 43.4 (42-50) % MCV 92.1 (78-100) fl MCH 29.9 (26-32) pg MCHC 32.5 (32-36) g/dl RDW 16.5 H (11.5-14.0) % Plt Count 480 H D (150-450) K/mm3 MPV 10.0 (7.5-11.0) fl Segmented Neutrophils 87 H (36.-66.) % Band Neutrophils 6 H (0.0-2.0) % Lymphocytes (Manual) 5 L (24-44) % Monocytes (Manual) 2 (0.0-12.0) % Toxic Granulation 2+ Platelet Estimate NORMAL (NORMAL) RBC Morphology ABNORMAL Anisocytosis 1+ Smear Path Review Pending D-Dimer (215-500) ng/mL Puncture Site pCO2 (35-45) mmHg pO2 (75-100) mmHg Base Excess (-2.0-2.0) O2 Saturation (94-100) g/dF ABG pH (7.35-7.45) ABG HCO3 (22-28) ABG O2 Sat (Measured) (95-100) % Julian Test A-a Gradient a/A Ratio Hemoglobin Carboxyhemoglobin (0.0-6.9) % THgb Methemoglobin (1.4-1.5) % Potassium 4.6 D (3.5-5.1) Temperature C POC O2 Flow Rate % Vent Mode Tidal Volume cc PEEP cmH2O Sodium 144 (137-145) mmol/L Chloride 111 H (98-107) mmol/L Carbon Dioxide 18 L (22-30) mmol/L Anion Gap 19.3 H (5-15) MEQ/L BUN 23 H (9-20) mg/dL Creatinine 0.86 (0.66-1.25) mg/dL Estimated GFR > 60.0 ML/MIN Glucose 183 H (74-106) mg/dL Lactic Acid 4.5 H (0.4-2.0) Calcium 8.7 (8.4-10.2) mg/dL Magnesium (1.6-2.3) mg/dL Troponin I (0.000-0.034) ng/mL Procalcitonin (0.030-0.080) ng/mL SARS-CoV-2 (PCR) (NEGATIVE) 03/30/21 03/30/21 03/30/21 Range/Units 05:03 05:03 05:55 WBC (4.0-10.5) K/mm3 RBC (4.1-5.6) M/mm3 Hgb (12.5-18.0) gm/dl Hct (42-50) % MCV (78-100) fl MCH (26-32) pg MCHC (32-36) g/dl RDW (11.5-14.0) % Plt Count (150-450) K/mm3 MPV (7.5-11.0) fl Segmented Neutrophils (36.-66.) % Band Neutrophils (0.0-2.0) % Lymphocytes (Manual) (24-44) % Monocytes (Manual) (0.0-12.0) % Toxic Granulation Platelet Estimate (NORMAL) RBC Morphology Anisocytosis Smear Path Review D-Dimer 7192 H* (215-500) ng/mL Puncture Site RIGHT BRACHIAL pCO2 68 H* (35-45) mmHg pO2 82 (75-100) mmHg Base Excess -15.3 L (-2.0-2.0) O2 Saturation 90.5 L (94-100) g/dF ABG pH 7.00 L* (7.35-7.45) ABG HCO3 16.8 L* (22-28) ABG O2 Sat (Measured) 91.8 L (95-100) % Julian Test NOT APPLICABLE A-a Gradient 546 a/A Ratio 0.13 Hemoglobin 13.9 Carboxyhemoglobin 0.9 (0.0-6.9) % THgb Methemoglobin 0.4 L (1.4-1.5) % Potassium 5.4 H (3.5-5.1) Temperature 37.0 C POC O2 Flow Rate 100 % Vent Mode Tidal Volume cc PEEP cmH2O Sodium (137-145) mmol/L Chloride (98-107) mmol/L Carbon Dioxide (22-30) mmol/L Anion Gap (5-15) MEQ/L BUN (9-20) mg/dL Creatinine (0.66-1.25) mg/dL Estimated GFR ML/MIN Glucose (74-106) mg/dL Lactic Acid (0.4-2.0) Calcium (8.4-10.2) mg/dL Magnesium (1.6-2.3) mg/dL Troponin I 0.287 H* (0.000-0.034) ng/mL Procalcitonin (0.030-0.080) ng/mL SARS-CoV-2 (PCR) (NEGATIVE) 03/30/21 03/30/21 03/30/21 Range/Units 07:14 08:10 08:47 WBC (4.0-10.5) K/mm3 RBC (4.1-5.6) M/mm3 Hgb (12.5-18.0) gm/dl Hct (42-50) % MCV (78-100) fl MCH (26-32) pg MCHC (32-36) g/dl RDW (11.5-14.0) % Plt Count (150-450) K/mm3 MPV (7.5-11.0) fl Segmented Neutrophils (36.-66.) % Band Neutrophils (0.0-2.0) % Lymphocytes (Manual) (24-44) % Monocytes (Manual) (0.0-12.0) % Toxic Granulation Platelet Estimate (NORMAL) RBC Morphology Anisocytosis Smear Path Review D-Dimer (215-500) ng/mL Puncture Site RIGHT RADIAL pCO2 73 H* (35-45) mmHg pO2 116 H (75-100) mmHg Base Excess -11.4 L (-2.0-2.0) O2 Saturation 96.4 (94-100) g/dF ABG pH 7.05 L* (7.35-7.45) ABG HCO3 20.2 L (22-28) ABG O2 Sat (Measured) 98.0 (95-100) % Julian Test YES A-a Gradient 506 a/A Ratio 0.19 Hemoglobin 14.4 Carboxyhemoglobin 1.1 (0.0-6.9) % THgb Methemoglobin 0.5 L (1.4-1.5) % Potassium 6.1 H* (3.5-5.1) Temperature 37.0 C POC O2 Flow Rate 100 % Vent Mode A/C Tidal Volume 500 cc PEEP 5.0 cmH2O Sodium (137-145) mmol/L Chloride (98-107) mmol/L Carbon Dioxide (22-30) mmol/L Anion Gap (5-15) MEQ/L BUN (9-20) mg/dL Creatinine (0.66-1.25) mg/dL Estimated GFR ML/MIN Glucose (74-106) mg/dL Lactic Acid (0.4-2.0) Calcium (8.4-10.2) mg/dL Magnesium (1.6-2.3) mg/dL Troponin I 0.458 H* (0.000-0.034) ng/mL Procalcitonin (0.030-0.080) ng/mL SARS-CoV-2 (PCR) NEGATIVE (NEGATIVE) 03/30/21 Range/Units 09:07 WBC (4.0-10.5) K/mm3 RBC (4.1-5.6) M/mm3 Hgb (12.5-18.0) gm/dl Hct (42-50) % MCV (78-100) fl MCH (26-32) pg MCHC (32-36) g/dl RDW (11.5-14.0) % Plt Count (150-450) K/mm3 MPV (7.5-11.0) fl Segmented Neutrophils (36.-66.) % Band Neutrophils (0.0-2.0) % Lymphocytes (Manual) (24-44) % Monocytes (Manual) (0.0-12.0) % Toxic Granulation Platelet Estimate (NORMAL) RBC Morphology Anisocytosis Smear Path Review D-Dimer (215-500) ng/mL Puncture Site pCO2 (35-45) mmHg pO2 (75-100) mmHg Base Excess (-2.0-2.0) O2 Saturation (94-100) g/dF ABG pH (7.35-7.45) ABG HCO3 (22-28) ABG O2 Sat (Measured) (95-100) % Julian Test A-a Gradient a/A Ratio Hemoglobin Carboxyhemoglobin (0.0-6.9) % THgb Methemoglobin (1.4-1.5) % Potassium 5.7 H D (3.5-5.1) Temperature C POC O2 Flow Rate % Vent Mode Tidal Volume cc PEEP cmH2O Sodium (137-145) mmol/L Chloride (98-107) mmol/L Carbon Dioxide (22-30) mmol/L Anion Gap (5-15) MEQ/L BUN (9-20) mg/dL Creatinine (0.66-1.25) mg/dL Estimated GFR ML/MIN Glucose (74-106) mg/dL Lactic Acid (0.4-2.0) Calcium (8.4-10.2) mg/dL Magnesium 2.2 (1.6-2.3) mg/dL Troponin I (0.000-0.034) ng/mL Procalcitonin (0.030-0.080) ng/mL SARS-CoV-2 (PCR) (NEGATIVE) Radiology Exams: Radiology Procedures Category Date Time Status CHEST 1 VIEW (PORTABLE) Routine Exams 03/30/21 06:55 Completed CHEST 1 VIEW (PORTABLE) Urgent Exams 03/30/21 04:17 Completed Portable Chest [CHEST 1 VIEW (PORTABLE)] Stat Exams 03/30/21 08:22 Taken 0004 RAD/CHEST 1 VIEW (PORTABLE) Indication: Endotracheal tube placement. Comparison: Taken earlier in the day. Portable chest demonstrates new endotracheal tube tip 8 cm above tessie. Remaining chest unchanged again with diffuse bilateral consolidating/nonconsolidating airspace disease and tiny left effusion. 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 No new cardiopulmonary abnormalities. Multi-Disciplinary Progress Notes: Multi-Disciplinary Progress Notes 03/30/21 01:24 Respiratory Note by Ute Alcala LATE ENTRY: RT WAS CALLED TO PT'S ROOM DUE TO SOB AND LOW O2 SATS. WHEN I ENTERED THE ROOM THE PT'S O2 SAT WAS 81% ON 3LPM NASAL CANNULA. PRN ALBUTEROL GIVEN AND PT'S O2 SAT 89% WITH TREATMENT RUNNING. PT VERY ANXIOUS. PT STILL EXTREMELY SOB AND ANXIOUS POST TX SO PT WAS PLACED ON BIPAP. ABG WAS ALSO DRAWN. PT'S O2 SAT QUICKLY INCREASED TO 98% ON THE BIPAP. DR. COLLINS CALLED PER NURSE TO UPDATE ON PT STATUS. NEW ORDERS GIVEN TO NURSE PER DR. COLLINS. PT BREATHING BETTER ON BIPAP AND CALMING DOWN. RT WILL CONTINUE TO MONITOR PT. Initialized on 03/30/21 01:24 - END OF NOTE Assessment/Plan (1) Acute respiratory failure with hypoxia and hypercapnia Current Visit: Yes Status: Acute Assessment & Plan: Chief Complaint Diagnosis COPD exacerbation, pneumaonia, hypokalemia, hyponatremia, leukocytosis, ple Allergies Allergy/AdvReac Type Severity Reaction Status Date / Time No Known Drug Allergies Allergy Verified 03/26/21 15:53 Vital Signs (Last 24 hours) Temp Pulse Resp BP BP Pulse Ox 03/30/21 10:09 114 H 18 95/73 97 03/30/21 09:02 114 H 18 98/77 97 03/30/21 09:00 115 H 98/76 03/30/21 08:01 108 H 107/84 03/30/21 07:54 115 H 14 115/86 96 03/30/21 07:22 103 H 107/63 03/30/21 07:14 108 H 14 99/60 96 03/30/21 06:40 123 H 14 94 L 03/30/21 06:25 94 L 03/30/21 06:13 94 L 03/30/21 04:00 98.5 F 118 H 32 H 120/81 95 03/30/21 03:00 95 03/30/21 02:40 110 H 32 H 99 03/30/21 00:55 99 03/30/21 00:00 97.6 F 91 H 26 H 159/87 91 L 03/29/21 23:55 129 H 40 H 82 L 03/29/21 22:35 92 L 03/29/21 22:10 90 26 H 90 L 03/29/21 20:00 97.6 F 83 24 147/82 93 L 03/29/21 17:12 80 18 96 03/29/21 16:00 97.3 F 94 H 22 168/88 92 L 03/29/21 12:00 98.0 F 83 16 141/67 95 03/29/21 11:01 81 18 93 L Home Medications Medication Instructions Recorded Confirmed Last Taken Type Diltiazem HCl [Dilt-Xr] 180 mg PO DAILY 03/26/21 03/26/21 Unknown History Losartan Potassium 100 mg PO DAILY 03/26/21 03/26/21 Unknown History Current Medications Generic Name Dose Route Start Last Admin Trade Name Freq PRN Reason Stop Dose Admin Albuterol Sulfate 2.5 mg 03/30/21 00:16 03/29/21 23:55 Proventil 2.5 Mg/3 Ml Neb 04/29/21 00:15 2.5 mg Q4H PRN PRN Administration SHORTNESS OF BREATH/WHEEZING Albuterol/Ipratropium 3 ml 03/26/21 23:10 03/30/21 06:25 Duoneb 0.5-3 Mg/3 Ml Neb 04/25/21 23:09 3 ml Q4HRT ANUJ Administration Methylprednisolone Sodium 0 mg 03/29/21 12:00 03/30/21 07:45 Succinate 80 mg/ Sterile Water IV 04/28/21 11:59 80 mg 2 ml Q6HT ANUJ Administration Diltiazem HCl 180 mg 03/27/21 10:00 03/30/21 08:29 Cardizem Cd 180 Mg PO 04/26/21 09:59 Not Given DAILY ANUJ Ceftriaxone Sodium/Dextrose 1 g in 50 mls @ 100 mls/hr 03/27/21 10:00 03/30/21 09:05 Rocephin 1 Gm-D5w 50 Ml Bag IV 03/31/21 09:59 100 mls/hr Q24H10 ANUJ Administration Potassium Chloride/Sodium Chloride 1,000 mls @ 50 mls/hr 03/27/21 08:00 03/29/21 15:08 Sodium Chloride 0.9% W/ 20 Meq Kcl/Liter IV 04/26/21 07:59 100 mls/hr .Q20H ANUJ Administration Azithromycin 500 mg in 250 mls @ 250 mls/hr 03/28/21 10:00 03/30/21 09:05 Zithromax 500 Mg/ 250 Ml Nacl Premix IV 04/27/21 09:59 250 mls/hr Q24H10 ANUJ Administration Fentanyl Citrate 1,500 mcg/ 150 mls @ 3.37 mls/hr 03/30/21 07:15 03/30/21 07:38 Sodium Chloride IV 04/04/21 07:14 1 mcg/kg/hr .Q24H AUNJ 6.74 mls/hr Administration Protocol 0.5 MCG/KG/HR Midazolam HCl 50 mg/ Sodium 250 mls @ 20 mls/hr 03/30/21 07:15 03/30/21 07:31 Chloride IV 04/29/21 07:14 4 mg/hr .[id number] PRN 20 mls/hr SEDATION Administration Protocol 4 MG/HR Cisatracurium Besylate 200 mg/ 200 mls @ 12.132 mls/hr 03/30/21 07:30 03/30/21 07:31 Dextrose IV 04/29/21 07:29 1 mcg/kg/min .[id number] ANUJ 4.044 mls/hr Administration Protocol 3 MCG/KG/MIN Losartan Potassium 100 mg 03/27/21 10:00 03/30/21 08:29 Cozaar 50 Mg PO 04/26/21 09:59 Not Given DAILY ANUJ Breztri Inhaler 2 each 03/27/21 08:00 03/30/21 06:25 IH 04/26/21 07:59 Not Given BIDRT ANUJ Discontinued Medications Generic Name Dose Route Start Last Admin Trade Name Freq PRN Reason Stop Dose Admin Albuterol Sulfate Confirm 03/29/21 23:53 Proventil 2.5 Mg/3 Ml Neb Administered 03/29/21 23:54 Dose 2.5 mg IH .STK-MED ONE Albuterol/Ipratropium 3 ml 03/26/21 19:30 03/26/21 20:10 Duoneb 0.5-3 Mg/3 Ml Neb IH 03/26/21 19:31 3 ml STAT ONE Administration Albuterol/Ipratropium Confirm 03/26/21 20:23 Duoneb 0.5-3 Mg/3 Ml Neb Administered 03/26/21 20:24 Dose 3 ml IH .STK-MED ONE Cisatracurium Besylate 16 mg 03/30/21 06:00 Nimbex 20mg/10 Ml Vial (High Risk Med) IV 03/30/21 06:01 .STK-MED ONE Methylprednisolone Sodium 0 mg 03/26/21 16:14 03/26/21 16:24 Succinate 125 mg/ Sterile IV 03/26/21 16:15 125 mg Water 2 ml STAT ONE Administration Methylprednisolone Sodium 0 mg 03/27/21 00:00 03/29/21 06:57 Succinate 60 mg/ Sterile Water IV 04/26/21 00:00 60 mg 2 ml Q6HT ANUJ Administration Enoxaparin Sodium 30 mg 03/27/21 01:23 03/29/21 09:01 Enoxaparin Sodium SQ 04/26/21 01:22 30 mg DAILY ANUJ Administration Fentanyl Citrate Confirm 03/30/21 06:18 Sublimaze 100 Mcg/2 Ml Administered 03/30/21 06:19 Dose 100 mcg .ROUTE .STK-MED ONE Fentanyl Citrate 100 mcg 03/30/21 06:00 Sublimaze 100 Mcg/2 Ml IV 03/30/21 06:01 .STK-MED ONE Furosemide Confirm 03/30/21 00:05 Lasix 20 Mg/2 Ml Administered 03/30/21 00:06 Dose 20 mg .ROUTE .STK-MED ONE Furosemide 20 mg 03/30/21 00:15 03/30/21 00:19 Lasix 20 Mg/2 Ml IV 03/30/21 00:16 20 mg ONCE ONE Administration Furosemide Confirm 03/30/21 05:07 Lasix 40 Mg/4 Ml Administered 03/30/21 05:08 Dose 40 mg .ROUTE .STK-MED ONE Furosemide 40 mg 03/30/21 05:15 03/30/21 05:15 Lasix 40 Mg/4 Ml IV 03/30/21 05:16 40 mg STAT ONE Administration Heparin Sodium (Beef Lung) Confirm 03/30/21 06:49 Heparin 5000 Units/0.5 Ml (High Risk Med) Administered 03/30/21 06:50 Dose 5,000 unit .ROUTE .STK-MED ONE Heparin Sodium (Beef Lung) 5,000 unit 03/30/21 06:00 Heparin 5000 Units/0.5 Ml (High Risk Med) IV 03/30/21 06:01 .STK-MED ONE Ceftriaxone Sodium/Dextrose 2 g in 50 mls @ 100 mls/hr 03/26/21 20:08 03/26/21 20:29 Rocephin 2 Gm-D5w 50ml Bag IV 03/26/21 20:37 100 mls/hr STAT STA 100 mls/hr Administration Ceftriaxone Sodium/Dextrose Confirm 03/26/21 20:27 Rocephin 2 Gm-D5w 50ml Bag Administered 03/26/21 20:28 Dose 2 g in 50 mls @ ud IV .STK-MED ONE Sodium Chloride 1,000 mls @ 100 mls/hr 03/26/21 22:15 03/26/21 22:24 Sodium Chloride 0.9% 1000 Ml IV 04/25/21 22:14 100 mls/hr .Q10H ANUJ Administration Azithromycin 500 mg in 250 mls @ 125 mls/hr 03/27/21 07:00 03/27/21 07:03 Zithromax 500 Mg/ 250 Ml Nacl Premix IV 03/27/21 08:59 125 mls/hr NOW ONE Administration Sodium Chloride Confirm 03/30/21 06:14 Sodium Chloride 0.9% 250 Ml Administered 03/30/21 06:15 Dose 250 mls @ ud IV .STK-MED ONE Sodium Chloride Confirm 03/30/21 06:51 Sodium Chloride 0.9% 1000 Ml Administered 03/30/21 06:52 Dose 1,000 mls @ ud .ROUTE .STK-MED ONE Lorazepam Confirm 03/30/21 00:05 Ativan 1 Mg Administered 03/30/21 00:06 Dose 1 mg .ROUTE .STK-MED ONE Lorazepam 1 mg 03/30/21 00:15 03/30/21 00:19 Ativan 1 Mg PO 03/30/21 00:16 1 mg ONCE ONE Administration Methylprednisolone Sodium Succinate Confirm 03/26/21 16:21 Solu-Medrol Administered 03/26/21 16:22 Dose 125 mg .ROUTE .STK-MED ONE Methylprednisolone Sodium Succinate Confirm 03/27/21 00:51 Solu-Medrol Administered 03/27/21 00:52 Dose 125 mg .ROUTE .STK-MED ONE Methylprednisolone Sodium Succinate Confirm 03/27/21 06:32 Solu-Medrol Administered 03/27/21 06:33 Dose 125 mg .ROUTE .STK-MED ONE Metoprolol Tartrate Confirm 03/30/21 06:54 Lopressor 5 Mg/5 Ml Injection Administered 03/30/21 06:55 Dose 5 mg IV .STK-MED ONE Metoprolol Tartrate 2.5 mg 03/30/21 06:00 Lopressor 5 Mg/5 Ml Injection IV 03/30/21 06:01 .STK-MED ONE Midazolam HCl Confirm 03/30/21 05:27 Versed 5 Mg/5 Ml Administered 03/30/21 05:28 Dose 5 mg .ROUTE .STK-MED ONE Midazolam HCl Confirm 03/30/21 05:42 Versed 5 Mg/5 Ml Administered 03/30/21 05:43 Dose 5 mg .ROUTE .STK-MED ONE Midazolam HCl Confirm 03/30/21 06:14 Versed 50 Mg/ 10 Ml Mdv Administered 03/30/21 06:15 Dose 50 mg .ROUTE .STK-MED ONE Midazolam HCl 7 mg 03/30/21 06:00 Versed 5 Mg/5 Ml IV 03/30/21 06:01 .STK-MED ONE Morphine Sulfate 4 mg 03/30/21 03:57 03/30/21 04:01 Morphine Sulfate 4 Mg Inj IV 04/04/21 03:56 4 mg Q4H PRN PRN Administration PAIN Nitroglycerin Confirm 03/30/21 06:50 Nitro-Bid 2% Ud Packets Administered 03/30/21 06:51 Dose 1 gm .ROUTE .STK-MED ONE Nitroglycerin 1 gm 03/30/21 06:00 Nitro-Bid 2% Ud Packets TOP 03/30/21 06:01 .STK-MED ONE Potassium Chloride 40 meq 03/26/21 22:12 03/26/21 22:23 Klor Con 10 Meq PO 03/26/21 22:13 40 meq STAT ONE Administration Potassium Chloride Confirm 03/26/21 22:15 Klor Con 10 Meq Administered 03/26/21 22:16 Dose 40 meq PO .STK-MED ONE Sterile Water Confirm 03/26/21 16:21 Sterile H2o 10 Ml Administered 03/26/21 16:22 Dose 10 ml IJ .STK-MED ONE Sterile Water Confirm 03/27/21 00:51 Sterile H2o 10 Ml Administered 03/27/21 00:52 Dose 10 ml IJ .STK-MED ONE Sterile Water Confirm 03/27/21 06:32 Sterile H2o 10 Ml Administered 03/27/21 06:33 Dose 10 ml IJ .STK-MED ONE Succinylcholine Chloride 100 mg 03/30/21 06:00 Quelicin Fliptop 200 Mg/10 Ml IV 03/30/21 06:01 .STK-MED ONE Intake & Output (Last 24 hours) 03/27/21 03/28/21 03/29/21 03/30/21 11:59 11:59 11:59 11:59 Intake Total 807 3217 4472 3271 Output Total 500 1650 1225 1700 Balance 307 1567 3247 1571 Weight 68.6 kg 67.4 kg Laboratory Results (Last 24 hours) 03/30/21 03/30/21 03/30/21 09:07 08:47 08:10 WBC RBC Hgb Hct MCV MCH MCHC RDW Plt Count MPV Segmented Neutrophils Band Neutrophils Lymphocytes (Manual) Monocytes (Manual) Toxic Granulation Platelet Estimate RBC Morphology Anisocytosis D-Dimer Puncture Site RIGHT RADIAL pCO2 73 H* pO2 116 H Base Excess -11.4 L O2 Saturation 96.4 ABG pH 7.05 L* ABG HCO3 20.2 L ABG O2 Sat (Measured) 98.0 Julian Test YES A-a Gradient 506 a/A Ratio 0.19 Hemoglobin 14.4 Carboxyhemoglobin 1.1 Methemoglobin 0.5 L Potassium 5.7 H D 6.1 H* Temperature 37.0 POC O2 Flow Rate 100 Vent Mode A/C Tidal Volume 500 PEEP 5.0 Sodium Chloride Carbon Dioxide Anion Gap BUN Creatinine Estimated GFR Glucose Lactic Acid Calcium Magnesium 2.2 Troponin I 0.458 H* Procalcitonin SARS-CoV-2 (PCR) 03/30/21 03/30/21 03/30/21 07:14 05:55 05:03 WBC RBC Hgb Hct MCV MCH MCHC RDW Plt Count MPV Segmented Neutrophils Band Neutrophils Lymphocytes (Manual) Monocytes (Manual) Toxic Granulation Platelet Estimate RBC Morphology Anisocytosis D-Dimer 7192 H* Puncture Site RIGHT BRACHIAL pCO2 68 H* pO2 82 Base Excess -15.3 L O2 Saturation 90.5 L ABG pH 7.00 L* ABG HCO3 16.8 L* ABG O2 Sat (Measured) 91.8 L Julian Test NOT APPLICABLE A-a Gradient 546 a/A Ratio 0.13 Hemoglobin 13.9 Carboxyhemoglobin 0.9 Methemoglobin 0.4 L Potassium 5.4 H Temperature 37.0 POC O2 Flow Rate 100 Vent Mode Tidal Volume PEEP Sodium Chloride Carbon Dioxide Anion Gap BUN Creatinine Estimated GFR Glucose Lactic Acid Calcium Magnesium Troponin I Procalcitonin SARS-CoV-2 (PCR) NEGATIVE 03/30/21 03/30/21 03/30/21 05:03 05:03 05:03 WBC 50.6 H* RBC 4.71 Hgb 14.1 D Hct 43.4 MCV 92.1 MCH 29.9 MCHC 32.5 RDW 16.5 H Plt Count 480 H D MPV 10.0 Segmented Neutrophils 87 H Band Neutrophils 6 H Lymphocytes (Manual) 5 L Monocytes (Manual) 2 Toxic Granulation 2+ Platelet Estimate NORMAL RBC Morphology ABNORMAL Anisocytosis 1+ D-Dimer Puncture Site pCO2 pO2 Base Excess O2 Saturation ABG pH ABG HCO3 ABG O2 Sat (Measured) Julian Test A-a Gradient a/A Ratio Hemoglobin Carboxyhemoglobin Methemoglobin Potassium 4.6 D Temperature POC O2 Flow Rate Vent Mode Tidal Volume PEEP Sodium 144 Chloride 111 H Carbon Dioxide 18 L Anion Gap 19.3 H BUN 23 H Creatinine 0.86 Estimated GFR > 60.0 Glucose 183 H Lactic Acid Calcium 8.7 Magnesium Troponin I 0.287 H* Procalcitonin SARS-CoV-2 (PCR) 03/30/21 03/30/21 03/30/21 05:00 04:00 00:49 WBC RBC Hgb Hct MCV MCH MCHC RDW Plt Count MPV Segmented Neutrophils Band Neutrophils Lymphocytes (Manual) Monocytes (Manual) Toxic Granulation Platelet Estimate RBC Morphology Anisocytosis D-Dimer Puncture Site pCO2 pO2 Base Excess O2 Saturation ABG pH ABG HCO3 ABG O2 Sat (Measured) Julian Test A-a Gradient a/A Ratio Hemoglobin Carboxyhemoglobin Methemoglobin Potassium Temperature POC O2 Flow Rate Vent Mode Tidal Volume PEEP Sodium Chloride Carbon Dioxide Anion Gap BUN Creatinine Estimated GFR Glucose Lactic Acid 4.5 H 3.1 H Calcium Magnesium Troponin I Procalcitonin 0.223 H SARS-CoV-2 (PCR) 03/30/21 00:44 WBC RBC Hgb Hct MCV MCH MCHC RDW Plt Count MPV Segmented Neutrophils Band Neutrophils Lymphocytes (Manual) Monocytes (Manual) Toxic Granulation Platelet Estimate RBC Morphology Anisocytosis D-Dimer Puncture Site RIGHT RADIAL pCO2 31 L pO2 114 H Base Excess -7.3 L O2 Saturation 97.0 ABG pH 7.35 ABG HCO3 17.1 L ABG O2 Sat (Measured) 99.0 Julian Test YES A-a Gradient 560 a/A Ratio 0.17 Hemoglobin 14.7 Carboxyhemoglobin 1.1 Methemoglobin 1.0 L Potassium 4.3 Temperature 37.0 POC O2 Flow Rate 100 Vent Mode CPAP Tidal Volume PEEP 8.0 Sodium Chloride Carbon Dioxide Anion Gap BUN Creatinine Estimated GFR Glucose Lactic Acid Calcium Magnesium Troponin I Procalcitonin SARS-CoV-2 (PCR) Orders (Last 24 hours) Category Date Time Status NPO Diet 03/30/21 08:39 Active CHEST 1 VIEW (PORTABLE) Routine Exams 03/30/21 06:55 Completed CHEST 1 VIEW (PORTABLE) Urgent Exams 03/30/21 04:17 Completed Portable Chest [CHEST 1 VIEW (PORTABLE)] Stat Exams 03/30/21 08:22 Taken ABG [ARTERIAL BLOOD GASES] Routine Lab 03/30/21 08:10 Completed ABG [ARTERIAL BLOOD GASES] Stat Lab 03/30/21 05:55 Completed ABG [ARTERIAL BLOOD GASES] Urgent Lab 03/30/21 00:44 Completed BMP AM.LAB Lab 03/30/21 05:03 Completed CBC W DIFF AM.LAB Lab 03/30/21 05:03 Results D-DIMER QUANTITATIVE Routine Lab 03/30/21 05:03 Completed Lactic Acid Routine Lab 03/30/21 05:00 Completed Lactic Acid Urgent Lab 03/30/21 00:49 Completed MAG [MAGNESIUM] Stat Lab 03/30/21 09:07 Completed Manual Differential NC Routine Lab 03/30/21 05:03 Results PROCALCITONIN DAILY Lab 03/31/21 05:00 Ordered PROCALCITONIN DAILY Lab 04/01/21 05:00 Ordered PROCALCITONIN DAILY Lab 04/02/21 05:00 Ordered PROCALCITONIN DAILY Lab 04/03/21 05:00 Ordered PROCALCITONIN Stat Lab 03/30/21 04:00 Completed Pathologist Review Routine Lab 03/30/21 05:03 Results Pot [Potassium] Stat Lab 03/30/21 09:07 Completed TROPONIN Stat Lab 03/30/21 05:03 Completed TROPONIN Stat Lab 03/30/21 08:47 Completed TROPONIN Stat Lab 03/30/21 11:00 Ordered Albuterol 2.5 mg/3 ml Neb [Proventil 2.5 mg/3 ml Neb Med 03/29/21 23:53 Discontinued ] 2.5 mg IH .STK-MED ONE Albuterol 2.5 mg/3 ml Neb [Proventil 2.5 mg/3 ml Neb Med 03/30/21 00:16 Active ] 2.5 mg IH Q4H PRN PRN Cisatracurium 20 mg/10 ml [Nimbex 20MG/10 Ml Vial ( Med 03/30/21 06:00 Discontinued HIGH RISK MED)] 16 mg IV .STK-MED ONE D5w 250 ml [Dextrose 5%/Water IV Soln. 250 ML] 180 ml Med 03/30/21 07:30 Active Cisatracurium 200 mg/20 ml [Nimbex 200MG/20 Ml MDV ( HIGH RISK MED)] 200 mg IV 3 mcg/kg/min Fentanyl Citrate 100 Mcg/2 ml* [Sublimaze 100 Mcg/2 ml* Med 03/30/21 06:18 Discontinued ] 100 mcg .ROUTE .STK-MED ONE Fentanyl Citrate 100 Mcg/2 ml* [Sublimaze 100 Mcg/2 ml* Med 03/30/21 06:00 Discontinued ] 100 mcg IV .STK-MED ONE Furosemide 20 mg/2 ml [Lasix 20 MG/2 ML] Med 03/30/21 00:05 Discontinued 20 mg .ROUTE .STK-MED ONE Furosemide 20 mg/2 ml [Lasix 20 MG/2 ML] Med 03/30/21 00:15 Discontinued 20 mg IV ONCE ONE Furosemide 40 mg/4 ml [Lasix 40 MG/4 ML] Med 03/30/21 05:07 Discontinued 40 mg .ROUTE .STK-MED ONE Furosemide 40 mg/4 ml [Lasix 40 MG/4 ML] Med 03/30/21 05:15 Discontinued 40 mg IV STAT ONE Heparin 5000 Units/0.5 ml [Heparin 5000 UNITS/0.5 ML Med 03/30/21 06:49 Discontinued (HIGH RISK MED)] 5,000 unit .ROUTE .STK-MED ONE Heparin 5000 Units/0.5 ml [Heparin 5000 UNITS/0.5 ML Med 03/30/21 06:00 Discontinued (HIGH RISK MED)] 5,000 unit IV .STK-MED ONE Lorazepam 1 mg [Ativan 1 MG] Med 03/30/21 00:05 Discontinued 1 mg .ROUTE .STK-MED ONE Lorazepam 1 mg [Ativan 1 MG] Med 03/30/21 00:15 Discontinued 1 mg PO ONCE ONE Methylprednis Sod Succ 125 mg* [solu-MEDROL] 80 mg Med 03/29/21 12:00 Active Water For Injection,Sterile [Sterile H2O 10 ml] 2 ml IV Q6HT Metoprolol Tartrate 5 mg/5 ml* [Lopressor 5 mg/5 ml Med 03/30/21 06:00 Discontinued Injection] 2.5 mg IV .STK-MED ONE Metoprolol Tartrate 5 mg/5 ml* [Lopressor 5 mg/5 ml Med 03/30/21 06:54 Discontinued Injection] 5 mg IV .STK-MED ONE Midazolam HCl 5 mg/5 ml [Versed 5 mg/5 ml] Med 03/30/21 05:27 Discont inued 5 mg .ROUTE .STK-MED ONE Midazolam HCl 5 mg/5 ml [Versed 5 mg/5 ml] Med 03/30/21 05:42 Discontinued 5 mg .ROUTE .STK-MED ONE Midazolam HCl 5 mg/5 ml [Versed 5 mg/5 ml] Med 03/30/21 06:00 Discontinued 7 mg IV .STK-MED ONE Midazolam HCl 50 mg/10 ml Mdv* [Versed 50 MG/ 10 Ml MDV Med 03/30/21 06:14 Discontinued ] 50 mg .ROUTE .STK-MED ONE Morphine Sulfate 4 mg Inj Med 03/30/21 03:57 Discontinued 4 mg IV Q4H PRN PRN NaCl 0.9% 1000 ml [Sodium Chloride 0.9% 1000 ML] 1,000 Med 03/30/21 06:51 Discontinued ml .ROUTE UD NaCl 0.9% 150 ml [Sodium Chloride 0.9% 150 ML] 120 ml Med 03/30/21 07:15 Active Fentanyl 1000 mg/20 ml [SUBLIMAZE 1000 Mcg/ 20 Ml ] 1,500 mcg IV 0.5 mcg/kg/hr NaCl 0.9% 250 ml [Sodium Chloride 0.9% 250 ML] 240 ml Med 03/30/21 07:15 Active Midazolam HCl 50 mg/10 ml Mdv* [Versed 50 MG/ 10 Ml MDV ] 50 mg IV 4 mg/hr NaCl 0.9% 250 ml [Sodium Chloride 0.9% 250 ML] 250 ml Med 03/30/21 06:14 Discontinued IV UD Nitroglycerin 2 %Ointment [Nitro-Bid 2% Ud Packets Med 03/30/21 06:50 Discontinued *] 1 gm .ROUTE .STK-MED ONE Nitroglycerin 2 %Ointment [Nitro-Bid 2% Ud Packets Med 03/30/21 06:00 Discontinued *] 1 gm TOP .STK-MED ONE Succinylcholine Chloride 200Mg [Quelicin Fliptop 200 MG Med 03/30/21 06:00 Dis continued /10 ML] 100 mg IV .STK-MED ONE BiPap/CPAP STAT RT 03/30/21 00:26 Active EKG OM.NOW RT 03/30/21 09:47 Active EKG STAT RT 03/30/21 07:22 Completed Intubate Patient STAT RT 03/30/21 06:13 Active Ventilator Management Q4H RT 03/30/21 06:13 Active Transfer Order Routine Transfer 03/30/21 Completed Patient Care Notes (Last 24 hours) 03/30/21 10:17 Nursing Note by Teodora Olivera ngt dc'd Initialized on 03/30/21 10:17 - END OF NOTE 03/30/21 09:48 Nursing Note by Teodora Olivera dr. at bedside, aware of labs including troponin. he is keeping dolphin researcher dr. avila updated and plan is to transfer to [facility] when bed becomes available. Initialized on 03/30/21 09:48 - END OF NOTE 03/30/21 08:45 Nursing Note by Asuncion Jean 0550 - IV started in pt's left upper forearm x 1 attempt with a 20 gauge . Dressing applied. Site C/D/I . Initialized on 03/30/21 08:45 - END OF NOTE 03/30/21 07:40 Nursing Note by Adrienne Bro code rapid called at 0520, see report Initialized on 03/30/21 07:40 - END OF NOTE 03/30/21 07:09 Nursing Note by Teodora Olivera pt received orally intubated on vvent-see table games shift manager flowsheet. dr. collins at bedside talking with family. nimbex drip @ 1mcg/kg/hr or 4cc/hr, versed 4mg/hr or 20cc/hr, ns@100cc/hr. Addendum entered by Teodora Olivera 03/30/21 09:27: all restraints removed Initialized on 03/30/21 07:09 - END OF NOTE 03/30/21 04:46 Nursing Note by Adrienne Bro At the time of this writing patient has received 4mg of morphine, a cxr and troponins have been ordered. Patient is fighting all treatment and is somewhat confused. Respirations are labored and lung leyva are diminished throughout with very little air movement noted. Patient is back on bipap and oxygen sat is 95-100% with a heart rate of 130's. Will notify Dr Collins of cxr and lab results. Initialized on 03/30/21 04:46 - END OF NOTE 03/30/21 03:23 Nursing Note by Adrienne Bro Patient continues to be sob but is calmer. Rowan catheter anchored. 400ml urine immediately off. Patient now on ventimask at 15L. O2 sats 95%. Bedside continuous pulse ox in p[lace. Initialized on 03/30/21 03:23 - END OF NOTE 03/30/21 01:24 Respiratory Note by Ute Alcala LATE ENTRY: RT WAS CALLED TO PT'S ROOM DUE TO SOB AND LOW O2 SATS. WHEN I ENTERED THE ROOM THE PT'S O2 SAT WAS 81% ON 3LPM NASAL CANNULA. PRN ALBUTEROL GIVEN AND PT'S O2 SAT 89% WITH TREATMENT RUNNING. PT VERY ANXIOUS. PT STILL EXTREMELY SOB AND ANXIOUS POST TX SO PT WAS PLACED ON BIPAP. ABG WAS ALSO DRAWN. PT'S O2 SAT QUICKLY INCREASED TO 98% ON THE BIPAP. DR. COLLINS CALLED PER NURSE TO UPDATE ON PT STATUS. NEW ORDERS GIVEN TO NURSE PER DR. COLLINS. PT BREATHING BETTER ON BIPAP AND CALMING DOWN. RT WILL CONTINUE TO MONITOR PT. Initialized on 03/30/21 01:24 - END OF NOTE 03/30/21 00:43 Nursing Note by Adrienne Bro RECHECK OF PATIENT SHOWS PATIENT IS STILL IN DISTRESS, SATS ARE 97% ON BIPAP 100%. PATIENT ANXIOUS BUT BEGINNING TO CALM DOWN. Initialized on 03/30/21 00:43 - END OF NOTE 03/30/21 00:21 Nursing Note by Adrienne Bro CALLED DR RDZ REGARDING PATIENT OXYGEN LEVEL 81%, INCREASED WHEEZING AND SOB. DR RDZ ADVISED THIS NURSE THAT HE WAS NOT RENTAL MANAGEMENT TRAINEE AND TO CALL DR COLLINS. ORDERS RECEIVED FROM DR COLLINS FOR IV LASIX 20MG X 1 NOW, RESPIRATORY HERE AND PT PLACED ON BIPAP AT 100% AND SATS UP TO 98% WHEN THIS NURSE LEFT THE ROOM. PATIENT MUCH CALMER. Initialized on 03/30/21 00:21 - END OF NOTE 03/30/21 00:20 SBAR Note by Adrienne Bro SITUATION I am calling about ROMA TOVAR the patient's code status is Full Code The problem I am calling about is: SOB, OXYGEN SATS 81% ASSESSMENT RECOMMENDATION Physician notified at 0020 New Orders received: ORDER RECEIVED FOR 20MG IV LASIX X 1, ATIVAN 1MG PO X 1 Vital Signs (Last 4 hours) Pulse Resp Pulse Ox 03/29/21 22:35 92 L 03/29/21 22:10 90 26 H 90 L Diagnois, Code Status Date of Arrival on Unit 03/26/21 Admitted From Emergency Dept Diagnosis COPD exacerbation, pneumaonia, hypokalemia, hyponatremia, leukocytosis, ple Resucitation Status Full Code Intake and Output 12 Hours 03/29/21 03/30/21 18:59 06:59 Intake Total 2973 480 Output Total 650 200 Balance 2323 280 Intake: Intake, Oral Amount 660 480 Intake, IV Amount 2313 Output: Output, Urine Amount 650 200 Physical Assessment Anxiety Level None,at ease Mental Status Alert Patient Orientation Person,Place,Time Coma Scale Total 15 Breath Sounds [Posterior] Wheezes,Diminished Breath Sounds [Throughout] Wheezes Breath Sounds [Posterior Bases Fine,Diminished ] Breath Sounds [Anterior/ Wheezes Posterior] Breath Sounds [Anterior Clear,Diminished Bilateral Throughout] Breath Sounds [Throughout] Wheezes Cardiac Rhythm-[facility] Sinus Rhythm Change from Baseline: No Bowel Sounds [All Quadrants] Present Abdomen Description Soft,Non-Tender Urine Appearance Clear Urine Color Light Gladis Skin Color Mariano Skin Temperature Warm PAST MEDICAL HISTORY Neurological History No Pertinent History ENT History No Pertinent History Endocrine Medical History No Pertinent History Respiratory History COPD Cardiac History Coronary Artery Disease,Hypertension GI Medical History No Pertinent History History No Pertinent History Pyscho-Social History No Pertinent History Communicable Disease No Pertinent History Orders (Last 12 Hours) Category Date Time Status BMP AM.LAB Lab 03/30/21 04:00 Ordered CBC W DIFF AM.LAB Lab 03/30/21 04:00 Ordered Albuterol 2.5 mg/3 ml Neb [Proventil 2.5 mg/3 ml Neb Med 03/30/21 00:16 Ordered ] 2.5 mg IH Q4H PRN PRN Furosemide 20 mg/2 ml [Lasix 20 MG/2 ML] Med 03/30/21 00:15 Once 20 mg IV ONCE ONE Lorazepam 1 mg [Ativan 1 MG] Med 03/30/21 00:15 Once 1 mg PO ONCE ONE Methylprednis Sod Succ 125 mg* [solu-MEDROL] 80 mg Med 03/29/21 12:00 Active Water For Injection,Sterile [Sterile H2O 10 ml] 2 ml IV Q6HT Active Visit Medications Generic Name Dose Route Start Last Admin Trade Name Freq PRN Reason Stop Dose Admin Albuterol Sulfate 2.5 mg 03/30/21 00:16 Proventil 2.5 Mg/3 Ml Neb 04/29/21 00:15 Q4H PRN PRN SHORTNESS OF BREATH/WHEEZING Albuterol/Ipratropium 3 ml 03/26/21 23:10 03/29/21 22:08 Duoneb 0.5-3 Mg/3 Ml Neb 04/25/21 23:09 3 ml Q4HRT ANUJ Administration Methylprednisolone Sodium 0 mg 03/29/21 12:00 03/29/21 23:34 Succinate 80 mg/ Sterile Water IV 04/28/21 11:59 80 mg 2 ml Q6HT ANUJ Administration Diltiazem HCl 180 mg 03/27/21 10:00 03/29/21 09:01 Cardizem Cd 180 Mg PO 04/26/21 09:59 180 mg DAILY ANUJ Administration Enoxaparin Sodium 30 mg 03/27/21 01:23 03/29/21 09:01 Enoxaparin Sodium SQ 04/26/21 01:22 30 mg DAILY ANUJ Administration Furosemide 20 mg 03/30/21 00:15 03/30/21 00:19 Lasix 20 Mg/2 Ml IV 03/30/21 00:16 20 mg ONCE ONE Administration Ceftriaxone Sodium/Dextrose 1 g in 50 mls @ 100 mls/hr 03/27/21 10:00 03/29/21 08:57 Rocephin 1 Gm-D5w 50 Ml Bag IV 03/31/21 09:59 100 mls/hr Q24H10 ANUJ Administration Potassium Chloride/Sodium Chloride 1,000 mls @ 50 mls/hr 03/27/21 08:00 03/29/21 15:08 Sodium Chloride 0.9% W/ 20 Meq Kcl/Liter IV 04/26/21 07:59 100 mls/hr .Q20H ANUJ Administration Azithromycin 500 mg in 250 mls @ 250 mls/hr 03/28/21 10:00 03/29/21 08:57 Zithromax 500 Mg/ 250 Ml Nacl Premix IV 04/27/21 09:59 250 mls/hr Q24H10 ANUJ Administration Lorazepam 1 mg 03/30/21 00:15 03/30/21 00:19 Ativan 1 Mg PO 03/30/21 00:16 1 mg ONCE ONE Administration Losartan Potassium 100 mg 03/27/21 10:00 03/29/21 09:04 Cozaar 50 Mg PO 04/26/21 09:59 Not Given DAILY ANUJ Breztri Inhaler 2 each 03/27/21 08:00 03/29/21 17:12 IH 04/26/21 07:59 2 each BIDRT ANUJ Administration Home Medications Medication Instructions Recorded Confirmed Last Taken Type Diltiazem HCl [Dilt-Xr] 180 mg PO DAILY 03/26/21 03/26/21 Unknown History Losartan Potassium 100 mg PO DAILY 03/26/21 03/26/21 Unknown History Initialized on 03/30/21 00:20 - END OF NOTE We have contacted [facility] for patient transfer. I talked to dolphin researcher and at this point of time patient will be at high risk for doing a cardiac cath. He advised patient to continue supportive ventilatory care for now. He wants patient to be transferred to ICU at [facility]. Due to Covid pandemic all hospitals in surrounding areas were contacted and they all are full. [facility] is advising patient should have a bed in 4 to 6 hours. Patient condition is very critical. Family is made aware of it. Code(s): J96.01 - ACUTE RESPIRATORY FAILURE WITH HYPOXIA; J96.02 - ACUTE RESPIRATORY FAILURE WITH HYPERCAPNIA (2) ST elevation (STEMI) myocardial infarction Current Visit: Yes Status: Acute Qualifiers: Involved coronary artery: unspecified coronary artery Qualified Code(s): I21.3 - ST elevation (STEMI) myocardial infarction of unspecified site Code(s): I21.3 - ST ELEVATION (STEMI) MYOCARDIAL INFARCTION OF UNSP SITE (3) COPD exacerbation Current Visit: Yes Status: Acute Code(s): J44.1 - CHRONIC OBSTRUCTIVE PULMONARY DISEASE W (ACUTE) EXACERBATION (4) Pneumonia Current Visit: Yes Status: Acute Qualifiers: Pneumonia type: due to unspecified organism Laterality: bilateral Lung location: lower lobe of lung Qualified Code(s): J18.9 - Pneumonia, unspecified organism Assessment & Plan: Patient is on ceftriaxone and azithromycin IV for patient pneumonia. Patient NG tube has been in the right bronchus so we have removed the NG tube and we will try to replace it. Code(s): J18.9 - PNEUMONIA, UNSPECIFIED ORGANISM
[2021-03-30] MEDS: Sodium Chloride 0.9% 1000 ML 1,000 ML IV SCH ×2 (15:01→23:46)
[2021-03-30 17:16] LABS: A-aADO2 420; ABG HEMOGLOBIN 14.2; ARTERIAL BLD GAS TIDAL VOLUME 500 cc; ARTERIAL BLOOD GAS FIO2 100 %; ARTERIAL BLOOD GAS PO2 208 mmHg (75-100); ARTERIAL BLOOD GAS VENT MODE A/C; ARTERIAL BLOOD GAS pH 7.11 (7.35-7.45); HCO3- 21.6 (22-28)
[2021-03-30 17:17] LABS: ABG SITE RIGHT RADIAL; ARTERIAL BLOOD GAS PCO2 68 mmHg (35-45)
--- NOTE | 2021-03-30 17:19 | XRAY ---
Indication: NG tube placement. Comparison: Taken earlier in the day. Portable chest demonstrates new NG tube tip in right lower lobe bronchus. Stable NG tube tip 8 cm above tessie. Remaining chest unchanged again with diffuse bilateral consolidating/nonconsolidating airspace disease and left effusion. Heart not enlarged. No new cardiopulmonary abnormalities. Comment: No preliminary interpretation by the interpreting ER clinician. I gave telephone report to ER personnel, Roxann at 1705 hrs. on March 30, 2021.
[2021-03-30 19:55] LABS: A-aADO2 274; ABG HEMOGLOBIN 13.5; ABG POTASSIUM 5.6 (3.5-5.1); ABG SITE LEFT BRACHIAL; ARTERIAL BLD GAS O2 SATURATION 99.6 % (95-100); ARTERIAL BLD GAS TIDAL VOLUME 650 cc; ARTERIAL BLOOD GAS BASE EXCESS -5.7 (-2.0-2.0); ARTERIAL BLOOD GAS FIO2 70 %; ARTERIAL BLOOD GAS PCO2 43 mmHg (35-45); ARTERIAL BLOOD GAS PO2 171 mmHg (75-100); ARTERIAL BLOOD GAS VENT MODE A/C; ARTERIAL BLOOD GAS VENT RATE 18 /MIN; ARTERIAL BLOOD GAS pH 7.29 (7.35-7.45); CARBOXYHEMOGLOBIN 0.7 % THgb (0.0-6.9); HCO3- 20.7 (22-28); HGB O2 SAT 97.8 g/dF (94-100); Methhemoglobin 1.1 % (1.4-1.5)
[2021-03-30] MEDS ORDERED: DUONEB 0.5-3 MG/3 ml Neb IH ONE (23:18)
[2021-03-31] MEDS: DUONEB 0.5-3 MG/3 ml Neb IH SCH ×5 (02:43→18:54)
[2021-03-31] MEDS: Cardizem IV 50 MG/10 ML IV SCH ×2 (03:40→05:08)
[2021-03-31] MEDS: solu-MEDROL 80 MG, Sterile H2O 10 ml 2 ML IV SCH ×6 (05:08→17:15)
--- NOTE | 2021-03-31 05:24 | PCM.NOTE ---
Date and Time: 03/31/21519 Subjective Assessment: Last 24-hour events noted. Patient is intubated. Patient is hemodynamically doing better. Ventilator parameters are in acceptable range. Patient last 24- hour lab values and chest x-ray reviewed. - Review of Systems Constitutional: No Fever, No Chills Eyes: No Symptoms Ears, Nose, & Throat: No Symptoms Respiratory: No Cough, No Short Of Breath Cardiac: No Chest Pain, No Edema, No Syncope Abdominal/Gastrointestinal: No Abdominal Pain, No Nausea, No Vomiting, No Diarrhea Genitourinary Symptoms: No Dysuria Musculoskeletal: No Back Pain, No Neck Pain Skin: No Rash Neurological: No Dizziness, No Focal Weakness, No Sensory Changes Psychological: No Symptoms Endocrine: No Symptoms Hematologic/Lymphatic: No Symptoms Immunological/Allergic: No Symptoms All Other Systems: Unable due to condition Objective Exam General Appearance: mild distress Skin Exam: normal color Eye Exam: PERRL Ears, Nose, Throat Exam: normal ENT inspection, other (ET tube in place) Neck Exam: normal inspection Respiratory Exam: normal breath sounds, other (On ventilator) Cardiovascular Exam: tachycardia Gastrointestinal/Abdomen Exam: soft Extremity Exam: normal inspection Back Exam: normal inspection OBJECTIVE DATA Vital Signs: Vital Signs - 24 hr Temp Pulse Resp BP BP Pulse Ox 03/31/21 05:07 124 H 18 122/85 94 L 03/31/21 04:05 98.1 F 121 H 20 120/77 94 L 03/31/21 03:29 122 H 18 106/60 96 03/31/21 02:43 119 H 18 95 03/31/21 02:06 110 H 18 108/77 96 03/31/21 01:05 110 H 20 108/77 96 03/31/21 00:22 117 H 03/31/21 00:21 117 H 20 108/74 96 03/30/21 23:22 115 H 19 97 03/30/21 23:20 115 H 20 102/68 97 03/30/21 22:18 97 03/30/21 22:02 111 H 20 100/70 97 03/30/21 21:07 112 H 20 106/69 97 03/30/21 20:16 111 H 03/30/21 20:05 110 H 18 97 03/30/21 20:00 111 H 20 93/67 98 03/30/21 19:53 109 H 22 91/61 97 03/30/21 18:51 109 H 18 86/63 98 03/30/21 18:00 110 H 18 93/66 95 03/30/21 17:05 112 H 18 97 03/30/21 17:00 98 F 112 H 18 90/67 96 03/30/21 16:00 110 H 03/30/21 15:52 98 F 110 H 18 90/67 97 03/30/21 15:00 110 H 03/30/21 14:59 98 F 112 H 18 90/66 97 03/30/21 13:57 112 H 18 03/30/21 13:51 112 H 18 88/65 97 03/30/21 13:18 110 H 18 96 03/30/21 13:12 110 H 18 86/67 96 03/30/21 13:00 110 H 18 82/67 96 03/30/21 12:33 110 H 18 96 03/30/21 11:46 110 H 18 80/62 97 03/30/21 11:28 113 H 29 H 86/62 96 03/30/21 11:00 112 H 18 82/68 96 03/30/21 10:09 114 H 18 95/73 97 03/30/21 09:30 110 H 18 03/30/21 09:02 114 H 18 98/77 97 03/30/21 09:00 115 H 98/76 03/30/21 08:01 108 H 107/84 03/30/21 07:54 115 H 14 115/86 96 03/30/21 07:22 103 H 107/63 03/30/21 07:14 108 H 14 99/60 96 03/30/21 06:40 123 H 14 94 L 03/30/21 06:25 94 L 03/30/21 06:13 94 L Pain Assessment - Last Documented Pain Intensity 0 Pain Scale Used 0-10 Pain Scale Intake and Output: Intake & Output 03/28/21 03/29/21 03/30/21 03/31/21 11:59 11:59 11:59 11:59 Intake Total 3217 4472 3271 1285 Output Total 1650 1225 1700 500 Balance 1567 3247 1571 785 Weight 67.4 kg Lab Results: Lab Results-Last 24 Hours 09/18/21 09/18/21 09/18/21 Range/Units 04:00 05:00 05:03 WBC 50.6 H* (4.0-10.5) K/mm3 RBC 4.71 (4.1-5.6) M/mm3 Hgb 14.1 D (12.5-18.0) gm/dl Hct 43.4 (42-50) % MCV 92.1 (78-100) fl MCH 29.9 (26-32) pg MCHC 32.5 (32-36) g/dl RDW 16.5 H (11.5-14.0) % Plt Count 480 H D (150-450) K/mm3 MPV 10.0 (7.5-11.0) fl Segmented Neutrophils 87 H (36.-66.) % Band Neutrophils 6 H (0.0-2.0) % Lymphocytes (Manual) 5 L (24-44) % Monocytes (Manual) 2 (0.0-12.0) % Toxic Granulation 2+ Platelet Estimate NORMAL (NORMAL) RBC Morphology ABNORMAL Anisocytosis 1+ Smear Path Review Pending D-Dimer (215-500) ng/mL Puncture Site pCO2 (35-45) mmHg pO2 (75-100) mmHg Base Excess (-2.0-2.0) O2 Saturation (94-100) g/dF ABG pH (7.35-7.45) ABG HCO3 (22-28) ABG O2 Sat (Measured) (95-100) % Julian Test A-a Gradient a/A Ratio Hemoglobin Carboxyhemoglobin (0.0-6.9) % THgb Methemoglobin (1.4-1.5) % Temperature C POC O2 Flow Rate % Vent Mode Vent Rate /MIN Tidal Volume cc PEEP cmH2O Sodium (137-145) mmol/L Potassium (3.5-5.1) mmol/L Chloride (98-107) mmol/L Carbon Dioxide (22-30) mmol/L Anion Gap (5-15) MEQ/L BUN (9-20) mg/dL Creatinine (0.66-1.25) mg/dL Estimated GFR ML/MIN Glucose (74-106) mg/dL Lactic Acid 4.5 H (0.4-2.0) Calcium (8.4-10.2) mg/dL Magnesium (1.6-2.3) mg/dL Troponin I (0.000-0.034) ng/mL Procalcitonin 0.223 H (0.030-0.080) ng/mL SARS-CoV-2 (PCR) (NEGATIVE) 03/30/21 03/30/21 03/30/21 Range/Units 05:03 05:03 05:03 WBC (4.0-10.5) K/mm3 RBC (4.1-5.6) M/mm3 Hgb (12.5-18.0) gm/dl Hct (42-50) % MCV (78-100) fl MCH (26-32) pg MCHC (32-36) g/dl RDW (11.5-14.0) % Plt Count (150-450) K/mm3 MPV (7.5-11.0) fl Segmented Neutrophils (36.-66.) % Band Neutrophils (0.0-2.0) % Lymphocytes (Manual) (24-44) % Monocytes (Manual) (0.0-12.0) % Toxic Granulation Platelet Estimate (NORMAL) RBC Morphology Anisocytosis Smear Path Review D-Dimer 7192 H* (215-500) ng/mL Puncture Site pCO2 (35-45) mmHg pO2 (75-100) mmHg Base Excess (-2.0-2.0) O2 Saturation (94-100) g/dF ABG pH (7.35-7.45) ABG HCO3 (22-28) ABG O2 Sat (Measured) (95-100) % Julian Test A-a Gradient a/A Ratio Hemoglobin Carboxyhemoglobin (0.0-6.9) % THgb Methemoglobin (1.4-1.5) % Temperature C POC O2 Flow Rate % Vent Mode Vent Rate /MIN Tidal Volume cc PEEP cmH2O Sodium 144 (137-145) mmol/L Potassium 4.6 D (3.5-5.1) mmol/L Chloride 111 H (98-107) mmol/L Carbon Dioxide 18 L (22-30) mmol/L Anion Gap 19.3 H (5-15) MEQ/L BUN 23 H (9-20) mg/dL Creatinine 0.86 (0.66-1.25) mg/dL Estimated GFR > 60.0 ML/MIN Glucose 183 H (74-106) mg/dL Lactic Acid (0.4-2.0) Calcium 8.7 (8.4-10.2) mg/dL Magnesium (1.6-2.3) mg/dL Troponin I 0.287 H* (0.000-0.034) ng/mL Procalcitonin (0.030-0.080) ng/mL SARS-CoV-2 (PCR) (NEGATIVE) 03/30/21 03/30/21 03/30/21 Range/Units 05:55 07:14 08:10 WBC (4.0-10.5) K/mm3 RBC (4.1-5.6) M/mm3 Hgb (12.5-18.0) gm/dl Hct (42-50) % MCV (78-100) fl MCH (26-32) pg MCHC (32-36) g/dl RDW (11.5-14.0) % Plt Count (150-450) K/mm3 MPV (7.5-11.0) fl Segmented Neutrophils (36.-66.) % Band Neutrophils (0.0-2.0) % Lymphocytes (Manual) (24-44) % Monocytes (Manual) (0.0-12.0) % Toxic Granulation Platelet Estimate (NORMAL) RBC Morphology Anisocytosis Smear Path Review D-Dimer (215-500) ng/mL Puncture Site RIGHT BRACHIAL RIGHT RADIAL pCO2 68 H* 73 H* (35-45) mmHg pO2 82 116 H (75-100) mmHg Base Excess -15.3 L -11.4 L (-2.0-2.0) O2 Saturation 90.5 L 96.4 (94-100) g/dF ABG pH 7.00 L* 7.05 L* (7.35-7.45) ABG HCO3 16.8 L* 20.2 L (22-28) ABG O2 Sat (Measured) 91.8 L 98.0 (95-100) % Julian Test NOT APPLICABLE YES A-a Gradient 546 506 a/A Ratio 0.13 0.19 Hemoglobin 13.9 14.4 Carboxyhemoglobin 0.9 1.1 (0.0-6.9) % THgb Methemoglobin 0.4 L 0.5 L (1.4-1.5) % Temperature 37.0 37.0 C POC O2 Flow Rate 100 100 % Vent Mode A/C Vent Rate /MIN Tidal Volume 500 cc PEEP 5.0 cmH2O Sodium (137-145) mmol/L Potassium 5.4 H 6.1 H* (3.5-5.1) mmol/L Chloride (98-107) mmol/L Carbon Dioxide (22-30) mmol/L Anion Gap (5-15) MEQ/L BUN (9-20) mg/dL Creatinine (0.66-1.25) mg/dL Estimated GFR ML/MIN Glucose (74-106) mg/dL Lactic Acid (0.4-2.0) Calcium (8.4-10.2) mg/dL Magnesium (1.6-2.3) mg/dL Troponin I (0.000-0.034) ng/mL Procalcitonin (0.030-0.080) ng/mL SARS-CoV-2 (PCR) NEGATIVE (NEGATIVE) 03/30/21 03/30/21 03/30/21 Range/Units 08:47 09:07 11:35 WBC (4.0-10.5) K/mm3 RBC (4.1-5.6) M/mm3 Hgb (12.5-18.0) gm/dl Hct (42-50) % MCV (78-100) fl MCH (26-32) pg MCHC (32-36) g/dl RDW (11.5-14.0) % Plt Count (150-450) K/mm3 MPV (7.5-11.0) fl Segmented Neutrophils (36.-66.) % Band Neutrophils (0.0-2.0) % Lymphocytes (Manual) (24-44) % Monocytes (Manual) (0.0-12.0) % Toxic Granulation Platelet Estimate (NORMAL) RBC Morphology Anisocytosis Smear Path Review D-Dimer (215-500) ng/mL Puncture Site pCO2 (35-45) mmHg pO2 (75-100) mmHg Base Excess (-2.0-2.0) O2 Saturation (94-100) g/dF ABG pH (7.35-7.45) ABG HCO3 (22-28) ABG O2 Sat (Measured) (95-100) % Julian Test A-a Gradient a/A Ratio Hemoglobin Carboxyhemoglobin (0.0-6.9) % THgb Methemoglobin (1.4-1.5) % Temperature C POC O2 Flow Rate % Vent Mode Vent Rate /MIN Tidal Volume cc PEEP cmH2O Sodium (137-145) mmol/L Potassium 5.7 H D (3.5-5.1) mmol/L Chloride (98-107) mmol/L Carbon Dioxide (22-30) mmol/L Anion Gap (5-15) MEQ/L BUN (9-20) mg/dL Creatinine (0.66-1.25) mg/dL Estimated GFR ML/MIN Glucose (74-106) mg/dL Lactic Acid (0.4-2.0) Calcium (8.4-10.2) mg/dL Magnesium 2.2 (1.6-2.3) mg/dL Troponin I 0.458 H* 0.494 H* (0.000-0.034) ng/mL Procalcitonin (0.030-0.080) ng/mL SARS-CoV-2 (PCR) (NEGATIVE) 03/30/21 03/30/21 03/30/21 Range/Units 14:17 17:03 17:13 WBC (4.0-10.5) K/mm3 RBC (4.1-5.6) M/mm3 Hgb (12.5-18.0) gm/dl Hct (42-50) % MCV (78-100) fl MCH (26-32) pg MCHC (32-36) g/dl RDW (11.5-14.0) % Plt Count (150-450) K/mm3 MPV (7.5-11.0) fl Segmented Neutrophils (36.-66.) % Band Neutrophils (0.0-2.0) % Lymphocytes (Manual) (24-44) % Monocytes (Manual) (0.0-12.0) % Toxic Granulation Platelet Estimate (NORMAL) RBC Morphology Anisocytosis Smear Path Review D-Dimer (215-500) ng/mL Puncture Site RIGHT RADIAL pCO2 68 H* (35-45) mmHg pO2 208 H* (75-100) mmHg Base Excess -9.0 L (-2.0-2.0) O2 Saturation 98.0 (94-100) g/dF ABG pH 7.11 L* (7.35-7.45) ABG HCO3 21.6 L (22-28) ABG O2 Sat (Measured) 100.0 (95-100) % Julian Test N/A A-a Gradient 420 a/A Ratio 0.33 Hemoglobin 14.2 Carboxyhemoglobin 1.0 (0.0-6.9) % THgb Methemoglobin 1.0 L (1.4-1.5) % Temperature 37.0 C POC O2 Flow Rate 100 % Vent Mode A/C Vent Rate /MIN Tidal Volume 500 cc PEEP 5.0 cmH2O Sodium (137-145) mmol/L Potassium 6.0 H (3.5-5.1) mmol/L Chloride (98-107) mmol/L Carbon Dioxide (22-30) mmol/L Anion Gap (5-15) MEQ/L BUN (9-20) mg/dL Creatinine (0.66-1.25) mg/dL Estimated GFR ML/MIN Glucose (74-106) mg/dL Lactic Acid (0.4-2.0) Calcium (8.4-10.2) mg/dL Magnesium (1.6-2.3) mg/dL Troponin I 0.586 H* 0.745 H* (0.000-0.034) ng/mL Procalcitonin (0.030-0.080) ng/mL SARS-CoV-2 (PCR) (NEGATIVE) 03/30/21 Range/Units 19:46 WBC (4.0-10.5) K/mm3 RBC (4.1-5.6) M/mm3 Hgb (12.5-18.0) gm/dl Hct (42-50) % MCV (78-100) fl MCH (26-32) pg MCHC (32-36) g/dl RDW (11.5-14.0) % Plt Count (150-450) K/mm3 MPV (7.5-11.0) fl Segmented Neutrophils (36.-66.) % Band Neutrophils (0.0-2.0) % Lymphocytes (Manual) (24-44) % Monocytes (Manual) (0.0-12.0) % Toxic Granulation Platelet Estimate (NORMAL) RBC Morphology Anisocytosis Smear Path Review D-Dimer (215-500) ng/mL Puncture Site LEFT BRACHIAL pCO2 43 (35-45) mmHg pO2 171 H* (75-100) mmHg Base Excess -5.7 L (-2.0-2.0) O2 Saturation 97.8 (94-100) g/dF ABG pH 7.29 L (7.35-7.45) ABG HCO3 20.7 L (22-28) ABG O2 Sat (Measured) 99.6 (95-100) % Julian Test NOT APPLICABLE A-a Gradient 274 a/A Ratio 0.38 Hemoglobin 13.5 Carboxyhemoglobin 0.7 (0.0-6.9) % THgb Methemoglobin 1.1 L (1.4-1.5) % Temperature 37.0 C POC O2 Flow Rate 70 % Vent Mode A/C Vent Rate 18 /MIN Tidal Volume 650 cc PEEP 8.0 cmH2O Sodium (137-145) mmol/L Potassium 5.6 H (3.5-5.1) mmol/L Chloride (98-107) mmol/L Carbon Dioxide (22-30) mmol/L Anion Gap (5-15) MEQ/L BUN (9-20) mg/dL Creatinine (0.66-1.25) mg/dL Estimated GFR ML/MIN Glucose (74-106) mg/dL Lactic Acid (0.4-2.0) Calcium (8.4-10.2) mg/dL Magnesium (1.6-2.3) mg/dL Troponin I (0.000-0.034) ng/mL Procalcitonin (0.030-0.080) ng/mL SARS-CoV-2 (PCR) (NEGATIVE) Radiology Exams: Radiology Procedures Category Date Time Status CHEST 1 VIEW (PORTABLE) Routine Exams 03/30/21 06:55 Completed CHEST 1 VIEW (PORTABLE) Urgent Exams 03/30/21 04:17 Completed Portable Chest [CHEST 1 VIEW (PORTABLE)] DAILY Exams 03/31/21 06:00 Ordered Portable Chest [CHEST 1 VIEW (PORTABLE)] DAILY Exams 04/01/21 06:00 Ordered Portable Chest [CHEST 1 VIEW (PORTABLE)] DAILY Exams 04/02/21 06:00 Ordered Portable Chest [CHEST 1 VIEW (PORTABLE)] Stat Exams 03/30/21 08:22 Completed Assessment/Plan (1) Acute respiratory failure with hypoxia and hypercapnia Current Visit: Yes Status: Acute Assessment & Plan: Respiratory Therapy 03/30/21 06:13 Ventilator Management Q4H Chief Complaint Diagnosis ACUTE RESP FAILURE, SEPSIS Allergies Allergy/AdvReac Type Severity Reaction Status Date / Time No Known Drug Allergies Allergy Verified 03/26/21 15:53 Vital Signs (Last 24 hours) Temp Pulse Resp BP BP Pulse Ox 03/31/21 05:07 124 H 18 122/85 94 L 03/31/21 04:05 98.1 F 121 H 20 120/77 94 L 03/31/21 03:29 122 H 18 106/60 96 03/31/21 02:43 119 H 18 95 03/31/21 02:06 110 H 18 108/77 96 03/31/21 01:05 110 H 20 108/77 96 03/31/21 00:22 117 H 03/31/21 00:21 117 H 20 108/74 96 03/30/21 23:22 115 H 19 97 03/30/21 23:20 115 H 20 102/68 97 03/30/21 22:18 97 03/30/21 22:02 111 H 20 100/70 97 03/30/21 21:07 112 H 20 106/69 97 03/30/21 20:16 111 H 03/30/21 20:05 110 H 18 97 03/30/21 20:00 111 H 20 93/67 98 03/30/21 19:53 109 H 22 91/61 97 03/30/21 18:51 109 H 18 86/63 98 03/30/21 18:00 110 H 18 93/66 95 03/30/21 17:05 112 H 18 97 03/30/21 17:00 98 F 112 H 18 90/67 96 03/30/21 16:00 110 H 03/30/21 15:52 98 F 110 H 18 90/67 97 03/30/21 15:00 110 H 03/30/21 14:59 98 F 112 H 18 90/66 97 03/30/21 13:57 112 H 18 03/30/21 13:51 112 H 18 88/65 97 03/30/21 13:18 110 H 18 96 03/30/21 13:12 110 H 18 86/67 96 03/30/21 13:00 110 H 18 82/67 96 03/30/21 12:33 110 H 18 96 03/30/21 11:46 110 H 18 80/62 97 03/30/21 11:28 113 H 29 H 86/62 96 03/30/21 11:00 112 H 18 82/68 96 03/30/21 10:09 114 H 18 95/73 97 03/30/21 09:30 110 H 18 03/30/21 09:02 114 H 18 98/77 97 03/30/21 09:00 115 H 98/76 03/30/21 08:01 108 H 107/84 03/30/21 07:54 115 H 14 115/86 96 03/30/21 07:22 103 H 107/63 03/30/21 07:14 108 H 14 99/60 96 03/30/21 06:40 123 H 14 94 L 03/30/21 06:25 94 L 03/30/21 06:13 94 L Home Medications Medication Instructions Recorded Confirmed Last Taken Type Diltiazem HCl [Dilt-Xr] 180 mg PO DAILY 03/26/21 03/26/21 Unknown History Losartan Potassium 100 mg PO DAILY 03/26/21 03/26/21 Unknown History Current Medications Generic Name Dose Route Start Last Admin Trade Name Freq PRN Reason Stop Dose Admin Albuterol Sulfate 2.5 mg 03/30/21 00:16 03/29/21 23:55 Proventil 2.5 Mg/3 Ml Neb 04/29/21 00:15 2.5 mg Q4H PRN PRN Administration SHORTNESS OF BREATH/WHEEZING Albuterol/Ipratropium 3 ml 03/26/21 23:10 03/31/21 02:43 Duoneb 0.5-3 Mg/3 Ml Neb 04/25/21 23:09 3 ml Q4HRT ANUJ Administration Methylprednisolone Sodium 0 mg 03/29/21 12:00 03/31/21 05:08 Succinate 80 mg/ Sterile Water IV 04/28/21 11:59 80 mg 2 ml Q6HT ANUJ Administration Diltiazem HCl 180 mg 03/27/21 10:00 03/30/21 08:29 Cardizem Cd 180 Mg PO 04/26/21 09:59 Not Given DAILY ANUJ Diltiazem HCl 10 mg 03/31/21 03:37 03/31/21 05:08 Cardizem Iv 50 Mg/10 Ml IV 04/30/21 03:36 10 mg QD@0600 ANUJ Administration Ceftriaxone Sodium/Dextrose 1 g in 50 mls @ 100 mls/hr 03/27/21 10:00 03/30/21 09:05 Rocephin 1 Gm-D5w 50 Ml Bag IV 04/01/21 09:59 100 mls/hr Q24H10 ANUJ Administration Azithromycin 500 mg in 250 mls @ 250 mls/hr 03/28/21 10:00 03/30/21 09:05 Zithromax 500 Mg/ 250 Ml Nacl Premix IV 04/27/21 09:59 250 mls/hr Q24H10 ANUJ Administration Fentanyl Citrate 1,500 mcg/ 150 mls @ 3.37 mls/hr 03/30/21 07:15 03/30/21 23:44 Sodium Chloride IV 04/04/21 07:14 2 mcg/kg/hr .Q24H ANUJ 13.48 mls/hr Administration Protocol 0.5 MCG/KG/HR Midazolam HCl 50 mg/ Sodium 250 mls @ 20 mls/hr 03/30/21 07:15 03/31/21 01:05 Chloride IV 04/29/21 07:14 4 mg/hr .[id number] PRN 20 mls/hr SEDATION Titration Protocol 4 MG/HR Cisatracurium Besylate 200 mg/ 200 mls @ 12.132 mls/hr 03/30/21 07:30 03/31/21 01:04 Dextrose IV 04/29/21 07:29 3 mcg/kg/min .[id number] ANUJ 12.132 mls/hr Titration Protocol 3 MCG/KG/MIN Sodium Chloride 1,000 mls @ 150 mls/hr 03/30/21 14:00 03/30/21 23:46 Sodium Chloride 0.9% 1000 Ml IV 04/29/21 13:59 150 mls/hr .[id number] ANUJ Administration Losartan Potassium 100 mg 03/27/21 10:00 03/30/21 08:29 Cozaar 50 Mg PO 04/26/21 09:59 Not Given DAILY ANUJ Breztri Inhaler 2 each 03/27/21 08:00 03/30/21 20:05 IH 04/26/21 07:59 Not Given BIDRT ANUJ Discontinued Medications Generic Name Dose Route Start Last Admin Trade Name Freq PRN Reason Stop Dose Admin Albuterol Sulfate Confirm 03/29/21 23:53 Proventil 2.5 Mg/3 Ml Neb Administered 03/29/21 23:54 Dose 2.5 mg IH .STK-MED ONE Albuterol/Ipratropium 3 ml 03/26/21 19:30 03/26/21 20:10 Duoneb 0.5-3 Mg/3 Ml Neb IH 03/26/21 19:31 3 ml STAT ONE Administration Albuterol/Ipratropium Confirm 03/26/21 20:23 Duoneb 0.5-3 Mg/3 Ml Neb Administered 03/26/21 20:24 Dose 3 ml IH .STK-MED ONE Albuterol/Ipratropium Confirm 03/30/21 23:18 Duoneb 0.5-3 Mg/3 Ml Neb Administered 03/30/21 23:19 Dose 3 ml IH .STK-MED ONE Cisatracurium Besylate 16 mg 03/30/21 06:00 Nimbex 20mg/10 Ml Vial (High Risk Med) IV 03/30/21 06:01 .STK-MED ONE Methylprednisolone Sodium 0 mg 03/26/21 16:14 03/26/21 16:24 Succinate 125 mg/ Sterile IV 03/26/21 16:15 125 mg Water 2 ml STAT ONE Administration Methylprednisolone Sodium 0 mg 03/27/21 00:00 03/29/21 06:57 Succinate 60 mg/ Sterile Water IV 04/26/21 00:00 60 mg 2 ml Q6HT ANUJ Administration Enoxaparin Sodium 30 mg 03/27/21 01:23 03/29/21 09:01 Enoxaparin Sodium SQ 04/26/21 01:22 30 mg DAILY ANUJ Administration Fentanyl Citrate Confirm 03/30/21 06:18 Sublimaze 100 Mcg/2 Ml Administered 03/30/21 06:19 Dose 100 mcg .ROUTE .STK-MED ONE Fentanyl Citrate 100 mcg 03/30/21 06:00 Sublimaze 100 Mcg/2 Ml IV 03/30/21 06:01 .STK-MED ONE Furosemide Confirm 03/30/21 00:05 Lasix 20 Mg/2 Ml Administered 03/30/21 00:06 Dose 20 mg .ROUTE .STK-MED ONE Furosemide 20 mg 03/30/21 00:15 03/30/21 00:19 Lasix 20 Mg/2 Ml IV 03/30/21 00:16 20 mg ONCE ONE Administration Furosemide Confirm 03/30/21 05:07 Lasix 40 Mg/4 Ml Administered 03/30/21 05:08 Dose 40 mg .ROUTE .STK-MED ONE Furosemide 40 mg 03/30/21 05:15 03/30/21 05:15 Lasix 40 Mg/4 Ml IV 03/30/21 05:16 40 mg STAT ONE Administration Heparin Sodium (Beef Lung) Confirm 03/30/21 06:49 Heparin 5000 Units/0.5 Ml (High Risk Med) Administered 03/30/21 06:50 Dose 5,000 unit .ROUTE .STK-MED ONE Heparin Sodium (Beef Lung) 5,000 unit 03/30/21 06:00 Heparin 5000 Units/0.5 Ml (High Risk Med) IV 03/30/21 06:01 .STK-MED ONE Ceftriaxone Sodium/Dextrose 2 g in 50 mls @ 100 mls/hr 03/26/21 20:08 03/26/21 20:29 Rocephin 2 Gm-D5w 50ml Bag IV 03/26/21 20:37 100 mls/hr STAT STA 100 mls/hr Administration Ceftriaxone Sodium/Dextrose Confirm 03/26/21 20:27 Rocephin 2 Gm-D5w 50ml Bag Administered 03/26/21 20:28 Dose 2 g in 50 mls @ ud IV .STK-MED ONE Sodium Chloride 1,000 mls @ 100 mls/hr 03/26/21 22:15 03/26/21 22:24 Sodium Chloride 0.9% 1000 Ml IV 04/25/21 22:14 100 mls/hr .Q10H ANUJ Administration Azithromycin 500 mg in 250 mls @ 125 mls/hr 03/27/21 07:00 03/27/21 07:03 Zithromax 500 Mg/ 250 Ml Nacl Premix IV 03/27/21 08:59 125 mls/hr NOW ONE Administration Potassium Chloride/Sodium Chloride 1,000 mls @ 50 mls/hr 03/27/21 08:00 03/30/21 17:40 Sodium Chloride 0.9% W/ 20 Meq Kcl/Liter IV 04/26/21 07:59 150 mls/hr .Q20H ANUJ Infusion Sodium Chloride Confirm 03/30/21 06:14 Sodium Chloride 0.9% 250 Ml Administered 03/30/21 06:15 Dose 250 mls @ ud IV .STK-MED ONE Sodium Chloride Confirm 03/30/21 06:51 Sodium Chloride 0.9% 1000 Ml Administered 03/30/21 06:52 Dose 1,000 mls @ ud .ROUTE .STK-MED ONE Lorazepam Confirm 03/30/21 00:05 Ativan 1 Mg Administered 03/30/21 00:06 Dose 1 mg .ROUTE .STK-MED ONE Lorazepam 1 mg 03/30/21 00:15 03/30/21 00:19 Ativan 1 Mg PO 03/30/21 00:16 1 mg ONCE ONE Administration Methylprednisolone Sodium Succinate Confirm 03/26/21 16:21 Solu-Medrol Administered 03/26/21 16:22 Dose 125 mg .ROUTE .STK-MED ONE Methylprednisolone Sodium Succinate Confirm 03/27/21 00:51 Solu-Medrol Administered 03/27/21 00:52 Dose 125 mg .ROUTE .STK-MED ONE Methylprednisolone Sodium Succinate Confirm 03/27/21 06:32 Solu-Medrol Administered 03/27/21 06:33 Dose 125 mg .ROUTE .STK-MED ONE Metoprolol Tartrate Confirm 03/30/21 06:54 Lopressor 5 Mg/5 Ml Injection Administered 03/30/21 06:55 Dose 5 mg IV .STK-MED ONE Metoprolol Tartrate 2.5 mg 03/30/21 06:00 Lopressor 5 Mg/5 Ml Injection IV 03/30/21 06:01 .STK-MED ONE Midazolam HCl Confirm 03/30/21 05:27 Versed 5 Mg/5 Ml Administered 03/30/21 05:28 Dose 5 mg .ROUTE .STK-MED ONE Midazolam HCl Confirm 03/30/21 05:42 Versed 5 Mg/5 Ml Administered 03/30/21 05:43 Dose 5 mg .ROUTE .STK-MED ONE Midazolam HCl Confirm 03/30/21 06:14 Versed 50 Mg/ 10 Ml Mdv Administered 03/30/21 06:15 Dose 50 mg .ROUTE .STK-MED ONE Midazolam HCl 7 mg 03/30/21 06:00 Versed 5 Mg/5 Ml IV 03/30/21 06:01 .STK-MED ONE Morphine Sulfate 4 mg 03/30/21 03:57 03/30/21 04:01 Morphine Sulfate 4 Mg Inj IV 04/04/21 03:56 4 mg Q4H PRN PRN Administration PAIN Nitroglycerin Confirm 03/30/21 06:50 Nitro-Bid 2% Ud Packets Administered 03/30/21 06:51 Dose 1 gm .ROUTE .STK-MED ONE Nitroglycerin 1 gm 03/30/21 06:00 Nitro-Bid 2% Ud Packets TOP 03/30/21 06:01 .STK-MED ONE Potassium Chloride 40 meq 03/26/21 22:12 03/26/21 22:23 Klor Con 10 Meq PO 03/26/21 22:13 40 meq STAT ONE Administration Potassium Chloride Confirm 03/26/21 22:15 Klor Con 10 Meq Administered 03/26/21 22:16 Dose 40 meq PO .STK-MED ONE Sterile Water Confirm 03/26/21 16:21 Sterile H2o 10 Ml Administered 03/26/21 16:22 Dose 10 ml IJ .STK-MED ONE Sterile Water Confirm 03/27/21 00:51 Sterile H2o 10 Ml Administered 03/27/21 00:52 Dose 10 ml IJ .STK-MED ONE Sterile Water Confirm 03/27/21 06:32 Sterile H2o 10 Ml Administered 03/27/21 06:33 Dose 10 ml IJ .STK-MED ONE Succinylcholine Chloride 100 mg 03/30/21 06:00 Quelicin Fliptop 200 Mg/10 Ml IV 03/30/21 06:01 .STK-MED ONE Intake & Output (Last 24 hours) 03/28/21 03/29/21 03/30/21 03/31/21 11:59 11:59 11:59 11:59 Intake Total 3217 4472 3271 1285 Output Total 1650 1225 1700 500 Balance 1567 3247 1571 785 Weight 67.4 kg Laboratory Results (Last 24 hours) 03/30/21 03/30/21 03/30/21 19:46 17:13 17:03 WBC RBC Hgb Hct MCV MCH MCHC RDW Plt Count MPV Segmented Neutrophils Band Neutrophils Lymphocytes (Manual) Monocytes (Manual) Toxic Granulation Platelet Estimate RBC Morphology Anisocytosis D-Dimer Puncture Site LEFT BRACHIAL RIGHT RADIAL pCO2 43 68 H* pO2 171 H* 208 H* Base Excess -5.7 L -9.0 L O2 Saturation 97.8 98.0 ABG pH 7.29 L 7.11 L* ABG HCO3 20.7 L 21.6 L ABG O2 Sat (Measured) 99.6 100.0 Julian Test NOT APPLICABLE N/A A-a Gradient 274 420 a/A Ratio 0.38 0.33 Hemoglobin 13.5 14.2 Carboxyhemoglobin 0.7 1.0 Methemoglobin 1.1 L 1.0 L Temperature 37.0 37.0 POC O2 Flow Rate 70 100 Vent Mode A/C A/C Vent Rate 18 Tidal Volume 650 500 PEEP 8.0 5.0 Sodium Potassium 5.6 H 6.0 H Chloride Carbon Dioxide Anion Gap BUN Creatinine Estimated GFR Glucose Lactic Acid Calcium Magnesium Troponin I 0.745 H* Procalcitonin SARS-CoV-2 (PCR) 03/30/21 03/30/21 03/30/21 14:17 11:35 09:07 WBC RBC Hgb Hct MCV MCH MCHC RDW Plt Count MPV Segmented Neutrophils Band Neutrophils Lymphocytes (Manual) Monocytes (Manual) Toxic Granulation Platelet Estimate RBC Morphology Anisocytosis D-Dimer Puncture Site pCO2 pO2 Base Excess O2 Saturation ABG pH ABG HCO3 ABG O2 Sat (Measured) Julian Test A-a Gradient a/A Ratio Hemoglobin Carboxyhemoglobin Methemoglobin Temperature POC O2 Flow Rate Vent Mode Vent Rate Tidal Volume PEEP Sodium Potassium 5.7 H D Chloride Carbon Dioxide Anion Gap BUN Creatinine Estimated GFR Glucose Lactic Acid Calcium Magnesium 2.2 Troponin I 0.586 H* 0.494 H* Procalcitonin SARS-CoV-2 (PCR) 03/30/21 03/30/21 03/30/21 08:47 08:10 07:14 WBC RBC Hgb Hct MCV MCH MCHC RDW Plt Count MPV Segmented Neutrophils Band Neutrophils Lymphocytes (Manual) Monocytes (Manual) Toxic Granulation Platelet Estimate RBC Morphology Anisocytosis D-Dimer Puncture Site RIGHT RADIAL pCO2 73 H* pO2 116 H Base Excess -11.4 L O2 Saturation 96.4 ABG pH 7.05 L* ABG HCO3 20.2 L ABG O2 Sat (Measured) 98.0 Julian Test YES A-a Gradient 506 a/A Ratio 0.19 Hemoglobin 14.4 Carboxyhemoglobin 1.1 Methemoglobin 0.5 L Temperature 37.0 POC O2 Flow Rate 100 Vent Mode A/C Vent Rate Tidal Volume 500 PEEP 5.0 Sodium Potassium 6.1 H* Chloride Carbon Dioxide Anion Gap BUN Creatinine Estimated GFR Glucose Lactic Acid Calcium Magnesium Troponin I 0.458 H* Procalcitonin SARS-CoV-2 (PCR) NEGATIVE 03/30/21 03/30/21 03/30/21 05:55 05:03 05:03 WBC RBC Hgb Hct MCV MCH MCHC RDW Plt Count MPV Segmented Neutrophils Band Neutrophils Lymphocytes (Manual) Monocytes (Manual) Toxic Granulation Platelet Estimate RBC Morphology Anisocytosis D-Dimer 7192 H* Puncture Site RIGHT BRACHIAL pCO2 68 H* pO2 82 Base Excess -15.3 L O2 Saturation 90.5 L ABG pH 7.00 L* ABG HCO3 16.8 L* ABG O2 Sat (Measured) 91.8 L Julian Test NOT APPLICABLE A-a Gradient 546 a/A Ratio 0.13 Hemoglobin 13.9 Carboxyhemoglobin 0.9 Methemoglobin 0.4 L Temperature 37.0 POC O2 Flow Rate 100 Vent Mode Vent Rate Tidal Volume PEEP Sodium Potassium 5.4 H Chloride Carbon Dioxide Anion Gap BUN Creatinine Estimated GFR Glucose Lactic Acid Calcium Magnesium Troponin I 0.287 H* Procalcitonin SARS-CoV-2 (PCR) 03/30/21 03/30/21 03/30/21 05:03 05:03 05:00 WBC 50.6 H* RBC 4.71 Hgb 14.1 D Hct 43.4 MCV 92.1 MCH 29.9 MCHC 32.5 RDW 16.5 H Plt Count 480 H D MPV 10.0 Segmented Neutrophils 87 H Band Neutrophils 6 H Lymphocytes (Manual) 5 L Monocytes (Manual) 2 Toxic Granulation 2+ Platelet Estimate NORMAL RBC Morphology ABNORMAL Anisocytosis 1+ D-Dimer Puncture Site pCO2 pO2 Base Excess O2 Saturation ABG pH ABG HCO3 ABG O2 Sat (Measured) Julian Test A-a Gradient a/A Ratio Hemoglobin Carboxyhemoglobin Methemoglobin Temperature POC O2 Flow Rate Vent Mode Vent Rate Tidal Volume PEEP Sodium 144 Potassium 4.6 D Chloride 111 H Carbon Dioxide 18 L Anion Gap 19.3 H BUN 23 H Creatinine 0.86 Estimated GFR > 60.0 Glucose 183 H Lactic Acid 4.5 H Calcium 8.7 Magnesium Troponin I Procalcitonin SARS-CoV-2 (PCR) 03/30/21 04:00 WBC RBC Hgb Hct MCV MCH MCHC RDW Plt Count MPV Segmented Neutrophils Band Neutrophils Lymphocytes (Manual) Monocytes (Manual) Toxic Granulation Platelet Estimate RBC Morphology Anisocytosis D-Dimer Puncture Site pCO2 pO2 Base Excess O2 Saturation ABG pH ABG HCO3 ABG O2 Sat (Measured) Julian Test A-a Gradient a/A Ratio Hemoglobin Carboxyhemoglobin Methemoglobin Temperature POC O2 Flow Rate Vent Mode Vent Rate Tidal Volume PEEP Sodium Potassium Chloride Carbon Dioxide Anion Gap BUN Creatinine Estimated GFR Glucose Lactic Acid Calcium Magnesium Troponin I Procalcitonin 0.223 H SARS-CoV-2 (PCR) Orders (Last 24 hours) Category Date Time Status CO2 Monitoring PER RT PROTOCOL Care 03/30/21 20:08 Active NPO Diet 03/30/21 08:39 Active CHEST 1 VIEW (PORTABLE) Routine Exams 03/30/21 06:55 Completed Portable Chest [CHEST 1 VIEW (PORTABLE)] DAILY Exams 03/31/21 06:00 Ordered Portable Chest [CHEST 1 VIEW (PORTABLE)] DAILY Exams 04/01/21 06:00 Ordered Portable Chest [CHEST 1 VIEW (PORTABLE)] DAILY Exams 04/02/21 06:00 Ordered Portable Chest [CHEST 1 VIEW (PORTABLE)] Stat Exams 03/30/21 08:22 Completed ABG [ARTERIAL BLOOD GASES] Routine Lab 03/30/21 08:10 Completed ABG [ARTERIAL BLOOD GASES] Routine Lab 03/30/21 17:03 Completed ABG [ARTERIAL BLOOD GASES] Stat Lab 03/30/21 05:55 Completed ARTERIAL BLOOD GASES Routine Lab 03/30/21 19:46 Completed BMP AM.LAB Lab 03/30/21 05:03 Completed BNP [NT PRO BNP] AM.LAB Lab 03/31/21 04:00 Ordered CBC W DIFF AM.LAB Lab 03/30/21 05:03 Results CBC W DIFF AM.LAB Lab 03/31/21 04:00 Ordered CMP AM.LAB Lab 03/31/21 04:00 Ordered D-DIMER QUANTITATIVE Routine Lab 03/30/21 05:03 Completed Lactic Acid Routine Lab 03/30/21 05:00 Completed MAG [MAGNESIUM] Stat Lab 03/30/21 09:07 Completed Manual Differential NC Routine Lab 03/30/21 05:03 Results PROCALCITONIN DAILY Lab 03/31/21 05:00 Ordered PROCALCITONIN DAILY Lab 04/01/21 05:00 Ordered PROCALCITONIN DAILY Lab 04/02/21 05:00 Ordered PROCALCITONIN DAILY Lab 04/03/21 05:00 Ordered Pathologist Review Routine Lab 03/30/21 05:03 Results Pot [Potassium] Stat Lab 03/30/21 09:07 Completed TROPONIN AM.LAB Lab 03/31/21 04:00 Ordered TROPONIN Stat Lab 03/30/21 05:03 Completed TROPONIN Stat Lab 03/30/21 08:47 Completed TROPONIN Stat Lab 03/30/21 11:35 Completed TROPONIN Stat Lab 03/30/21 14:17 Completed TROPONIN Stat Lab 03/30/21 17:13 Completed Albuterol/Ipratropium 3ml Neb* [DUONEB 0.5-3 MG/3 ml Med 03/30/21 23:18 Discontinued Neb] 3 ml IH .STK-MED ONE Cisatracurium 20 mg/10 ml [Nimbex 20MG/10 Ml Vial ( Med 03/30/21 06:00 Discontinued HIGH RISK MED)] 16 mg IV .STK-MED ONE D5w 250 ml [Dextrose 5%/Water IV Soln. 250 ML] 180 ml Med 03/30/21 07:30 Active Cisatracurium 200 mg/20 ml [Nimbex 200MG/20 Ml MDV ( HIGH RISK MED)] 200 mg IV 3 mcg/kg/min Diltiazem HCl 50 mg/10 ml [Cardizem IV 50 MG/10 ML Med 03/31/21 03:37 Ordered *] 10 mg IV QD@0600 Fentanyl Citrate 100 Mcg/2 ml* [Sublimaze 100 Mcg/2 ml* Med 03/30/21 06:18 Discontinued ] 100 mcg .ROUTE .STK-MED ONE Fentanyl Citrate 100 Mcg/2 ml* [Sublimaze 100 Mcg/2 ml* Med 03/30/21 06:00 Discontinued ] 100 mcg IV .STK-MED ONE Furosemide 40 mg/4 ml [Lasix 40 MG/4 ML] Med 03/30/21 05:07 Discontinued 40 mg .ROUTE .STK-MED ONE Furosemide 40 mg/4 ml [Lasix 40 MG/4 ML] Med 03/30/21 05:15 Discontinued 40 mg IV STAT ONE Heparin 5000 Units/0.5 ml [Heparin 5000 UNITS/0.5 ML Med 03/30/21 06:49 Discontinued (HIGH RISK MED)] 5,000 unit .ROUTE .STK-MED ONE Heparin 5000 Units/0.5 ml [Heparin 5000 UNITS/0.5 ML Med 03/30/21 06:00 Discontinued (HIGH RISK MED)] 5,000 unit IV .STK-MED ONE Metoprolol Tartrate 5 mg/5 ml* [Lopressor 5 mg/5 ml Med 03/30/21 06:00 Discontinued Injection] 2.5 mg IV .STK-MED ONE Metoprolol Tartrate 5 mg/5 ml* [Lopressor 5 mg/5 ml Med 03/30/21 06:54 Discontinued Injection] 5 mg IV .STK-MED ONE Midazolam HCl 5 mg/5 ml [Versed 5 mg/5 ml] Med 03/30/21 05:27 Discontinued 5 mg .ROUTE .STK-MED ONE Midazolam HCl 5 mg/5 ml [Versed 5 mg/5 ml] Med 03/30/21 05:42 Discontinued 5 mg .ROUTE .STK-MED ONE Midazolam HCl 5 mg/5 ml [Versed 5 mg/5 ml] Med 03/30/21 06:00 Discontinued 7 mg IV .STK-MED ONE Midazolam HCl 50 mg/10 ml Mdv* [Versed 50 MG/ 10 Ml MDV Med 03/30/21 06:14 Discontinued ] 50 mg .ROUTE .STK-MED ONE NaCl 0.9% 1000 ml [Sodium Chloride 0.9% 1000 ML] 1,000 Med 03/30/21 06:51 Discontinued ml .ROUTE UD NaCl 0.9% 1000 ml [Sodium Chloride 0.9% 1000 ML] 1,000 Med 03/30/21 14:00 Active ml IV 150 mls/hr NaCl 0.9% 150 ml [Sodium Chloride 0.9% 150 ML] 120 ml Med 03/30/21 07:15 Active Fentanyl 1000 mg/20 ml [SUBLIMAZE 1000 Mcg/ 20 Ml ] 1,500 mcg IV 0.5 mcg/kg/hr NaCl 0.9% 250 ml [Sodium Chloride 0.9% 250 ML] 240 ml Med 03/30/21 07:15 Active Midazolam HCl 50 mg/10 ml Mdv* [Versed 50 MG/ 10 Ml MDV ] 50 mg IV 4 mg/hr NaCl 0.9% 250 ml [Sodium Chloride 0.9% 250 ML] 250 ml Med 03/30/21 06:14 Discontinued IV UD Nitroglycerin 2 %Ointment [Nitro-Bid 2% Ud Packets Med 03/30/21 06:50 Discontinued *] 1 gm .ROUTE .STK-MED ONE Nitroglycerin 2 %Ointment [Nitro-Bid 2% Ud Packets Med 03/30/21 06:00 Discontinued *] 1 gm TOP .STK-MED ONE Succinylcholine Chloride 200Mg [Quelicin Fliptop 200 MG Med 03/30/21 06:00 Discontinued /10 ML] 100 mg IV .STK-MED ONE EKG OM.NOW RT 03/30/21 09:47 Completed EKG STAT RT 03/30/21 07:22 Completed Intubate Patient STAT RT 03/30/21 06:13 Completed Ventilator Management Q4H RT 03/30/21 06:13 Active Patient Care Notes (Last 24 hours) 03/30/21 17:16 Nursing Note by Teodora Olivera attempted to place ogt without success, dr. collins aware. Initialized on 03/30/21 17:16 - END OF NOTE 03/30/21 10:46 Nursing Note by Gladis Toussaint DR CALLED AND STATED THAT PATIENT'S NG IS NOT IN PLACE AND NEEDS TO BE PULLED. THIS PULLED TUBE AT 1000 Initialized on 03/30/21 10:46 - END OF NOTE 03/30/21 10:17 Nursing Note by Teodora Olivera ngt dc'd Initialized on 03/30/21 10:17 - END OF NOTE 03/30/21 09:48 Nursing Note by Teodora Olivera dr. at bedside, aware of labs including troponin. 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 Initialized on 03/30/21 09:48 - END OF NOTE 03/30/21 08:45 Nursing Note by Asuncion Jean 0550 - IV started in pt's left upper forearm x 1 attempt with a 20 gauge . Dressing applied. Site C/D/I . Initialized on 03/30/21 08:45 - END OF NOTE 03/30/21 07:40 Nursing Note by Adrienne Bro rapid called at 0520, see report Initialized on 03/30/21 07:40 - END OF NOTE 03/30/21 07:09 Nursing Note by Teodora Olivera pt received orally intubated on vvent-see fur glazer flowsheet. dr. collins at bedside talking with family. nimbex drip @ 1mcg/kg/hr or 4cc/hr, versed 4mg/hr or 20cc/hr, ns@100cc/hr. Addendum entered by Teodora Olivera 03/30/21 09:27: all restraints removed Initialized on 03/30/21 07:09 - END OF NOTE Code(s): J96.01 - ACUTE RESPIRATORY FAILURE WITH HYPOXIA; J96.02 - ACUTE RESPIRATORY FAILURE WITH HYPERCAPNIA (2) ST elevation (STEMI) myocardial infarction Current Visit: Yes Status: Acute Qualifiers: Involved coronary artery: unspecified coronary artery Qualified Code(s): I21.3 - ST elevation (STEMI) myocardial infarction of unspecified site Code(s): I21.3 - ST ELEVATION (STEMI) MYOCARDIAL INFARCTION OF UNSP SITE (3) COPD exacerbation Current Visit: Yes Status: Acute Code(s): J44.1 - CHRONIC OBSTRUCTIVE PULMONARY DISEASE W (ACUTE) EXACERBATION (4) Pneumonia Current Visit: Yes Status: Acute Qualifiers: Pneumonia type: due to unspecified organism Laterality: bilateral Lung location: lower lobe of lung Qualified Code(s): J18.9 - Pneumonia, unspecified organism Code(s): J18.9 - PNEUMONIA, UNSPECIFIED ORGANISM
[2021-03-31] MEDS: Sodium Chloride 0.9% 1000 ML 1,000 ML IV SCH ×2 (06:13→13:42)
[2021-03-31 06:30] LABS: Hematocrit 45.5 % (42-50); Hemoglobin 14.1 gm/dl (12.5-18.0); Mean Cell Volume 95.8 fl (78-100); Mean Corpuscular Hemoglobin 29.7 pg (26-32); Mean Platelet Volume 10.1 fl (7.5-11.0); Platelet Count 314 K/mm3 (150-450); Red Blood Count 4.75 M/mm3 (4.1-5.6); Red Cell Distribution Width 17.4 % (11.5-14.0)
[2021-03-31 06:54] LABS: White Blood Count 27.3 K/mm3 (4.0-10.5)
[2021-03-31] MEDS: PATIENT OWN MEDICATION IH SCH (07:01)
[2021-03-31 07:07] LABS: ALBUMIN 2.2 g/dL (3.5-5.0); ALKALINE PHOSPHATASE 100 U/L (38-126); ANION GAP 12.9 MEQ/L (5-15); BLOOD UREA NITROGEN 37 mg/dL (9-20); CHLORIDE 118 mmol/L (98-107); Calcium 7.7 mg/dL (8.4-10.2); Carbon Dioxide 22 mmol/L (22-30); EST GLOMERULAR FILTRATION RATE > 60.0 ML/MIN; Glucose 135 mg/dL (74-106); Potassium 5.2 mmol/L (3.5-5.1); SGOT/AST 538 U/L (17-59); SGPT/ALT 618 U/L (0-50); SODIUM 148 mmol/L (137-145); Total Protein 4.3 g/dL (6.3-8.2)
[2021-03-31] MEDS: LOPRESSOR 5 MG/5 ML INJECTION IV SCH ×3 (07:15→13:22)
[2021-03-31] MEDS: Nimbex 200MG/20 Ml MDV (HIGH RISK MED)** 200 MG in Dextrose 5%/Water IV Soln. 250 ML 18... IV SCH (07:23)
--- NOTE | 2021-03-31 07:36 | XRAY ---
Indication: Covid 19. Comparison: One day earlier. Portable chest demonstrates endotracheal tube 7 cm above tessie. NG tube has been removed. Lungs again demonstrates diffuse bilateral consolidating/nonconsolidating airspace disease with minimal clearing left upper lung. Stable left pleural effusion. 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 No new cardiopulmonary abnormalities.
[2021-03-31] MEDS: Cardizem CD 180 MG PO SCH (08:50)
[2021-03-31] MEDS: Cozaar 50 MG PO SCH (08:50)
[2021-03-31] MEDS: ROCEPHIN 1 Gm-D5w 50 ml Bag** 1 G/50 ML IVPB IV SCH (09:03)
[2021-03-31 09:11] LABS: ANISOCYTOSIS 1+; BAND 4 % (0.0-2.0); Lymphocytes 4 % (24-44); Monocyte 3 % (0.0-12.0); Neutrophils 89 % (36.-66.); Platelet Estimate NORMAL (NORMAL); Total Cells Counted 100; Toxic Granulation 2+
[2021-03-31] MEDS ORDERED: FEVERALL 650 MG PR PRN (09:20)
[2021-03-31] MEDS: Zithromax 500 MG/ 250 ML NaCl Premix 500 MG/250 ML IVPB IV SCH (09:36)
[2021-03-31] MEDS ORDERED: ENOXAPARIN SODIUM SQ SCH (10:00)
[2021-03-31 11:04] LABS: A-aADO2 334; ABG HEMOGLOBIN 13.3; ABG POTASSIUM 5.2 (3.5-5.1); ABG SITE RIGHT RADIAL; ARTERIAL BLD GAS O2 SATURATION 99.4 % (95-100); ARTERIAL BLD GAS TIDAL VOLUME 650 cc; ARTERIAL BLOOD GAS BASE EXCESS -0.8 (-2.0-2.0); ARTERIAL BLOOD GAS FIO2 70 %; ARTERIAL BLOOD GAS PCO2 44 mmHg (35-45); ARTERIAL BLOOD GAS PO2 110 mmHg (75-100); ARTERIAL BLOOD GAS VENT MODE A/C; ARTERIAL BLOOD GAS pH 7.36 (7.35-7.45); CARBOXYHEMOGLOBIN 1.1 % THgb (0.0-6.9); HCO3- 24.9 (22-28); HGB O2 SAT 97.1 g/dF (94-100); Methhemoglobin 1.2 % (1.4-1.5)
[2021-03-31] MEDS: Versed 50 MG/ 10 Ml MDV*** 50 MG in Sodium Chloride 0.9% 250 ML 240 ML IV PRN (11:33)
[2021-03-31] MEDS ORDERED: CARDIZEM DRIP 100 MG/100 ML D5W 100 ML IV PRN (15:09)
[2021-03-31] MEDS: SUBLIMAZE 1000 Mcg/ 20 Ml*** 1,500 MCG in Sodium Chloride 0.9% 150 ML 120 ML IV SCH (18:55)
[2021-03-31 19:04] VITALS: PULSE 107
[2021-03-31 20:07] VITALS: BP 107/76; O2SAT 96
--- NOTE | 2021-04-01 08:15 | PCM.DS ---
Discharge Summary Date of Admission: 03/29/21 23:55 Admitting Physician: CAREY RDZ Consults: Consults on Case 03/31/21 07:59 Consult Pulmonology ROUTINE Primary Care Provider: CAREY RDZ Allergies Allergies No Known Drug Allergies Allergy (Verified 03/26/21 15:53) Hospital Summary - Hospital Course Hospital Course: Chief Complaint Diagnosis ACUTE RESP FAILURE, SEPSIS Allergies Allergy/AdvReac Type Severity Reaction Status Date / Time No Known Drug Allergies Allergy Verified 03/26/21 15:53 Vital Signs (Last 24 hours) Temp Pulse Resp BP Pulse Ox 03/31/21 20:07 107 H 03/31/21 20:05 98.9 F 107 H 20 107/76 96 03/31/21 19:00 107 H 24 94 L 03/31/21 18:57 109 H 22 106/76 94 L 03/31/21 17:56 109 H 18 108/77 94 L 03/31/21 17:00 114 H 18 106/76 97 03/31/21 16:24 110 H 03/31/21 16:20 98 F 108 H 18 102/72 95 03/31/21 15:54 113 H 18 96/69 97 03/31/21 14:53 111 H 18 94/70 97 03/31/21 14:00 98.6 F 107 H 18 91/70 97 03/31/21 13:34 98.6 F 104 H 18 108/74 98 03/31/21 13:00 121 H 18 108/74 97 03/31/21 12:23 116 H 18 97 03/31/21 11:46 113 H 18 100/62 97 03/31/21 11:00 113 H 18 94/63 97 03/31/21 09:57 100.8 F 116 H 18 107/66 96 03/31/21 09:30 100.8 F 03/31/21 08:57 115 H 18 109/67 97 Home Medications Medication Instructions Recorded Confirmed Last Taken Type Diltiazem HCl [Dilt-Xr] 180 mg PO DAILY 03/26/21 03/26/21 Unknown History Losartan Potassium 100 mg PO DAILY 03/26/21 03/26/21 Unknown History Current Medications Discontinued Medications Generic Name Dose Route Start Last Admin Trade Name Freq PRN Reason Stop Dose Admin Acetaminophen 650 mg 03/31/21 09:20 03/31/21 09:27 Feverall 650 Mg MO 04/30/21 09:19 650 mg Q4H PRN PRN Administration PAIN AND/OR FEVER Albuterol Sulfate Confirm 03/29/21 23:53 Proventil 2.5 Mg/3 Ml Neb Administered 03/29/21 23:54 Dose 2.5 mg IH .STK-MED ONE Albuterol Sulfate 2.5 mg 03/30/21 00:16 03/29/21 23:55 Proventil 2.5 Mg/3 Ml Neb IH 04/29/21 00:15 2.5 mg Q4H PRN PRN Administration SHORTNESS OF BREATH/WHEEZING Albuterol/Ipratropium 3 ml 03/26/21 19:30 03/26/21 20:10 Duoneb 0.5-3 Mg/3 Ml Neb IH 03/26/21 19:31 3 ml STAT ONE Administration Albuterol/Ipratropium Confirm 03/26/21 20:23 Duoneb 0.5-3 Mg/3 Ml Neb Administered 03/26/21 20:24 Dose 3 ml IH .STK-MED ONE Albuterol/Ipratropium 3 ml 03/26/21 23:10 03/31/21 18:54 Duoneb 0.5-3 Mg/3 Ml Neb IH 04/25/21 23:09 3 ml Q4HRT ANUJ Administration Albuterol/Ipratropium Confirm 03/30/21 23:18 Duoneb 0.5-3 Mg/3 Ml Neb Administered 03/30/21 23:19 Dose 3 ml IH .STK-MED ONE Cisatracurium Besylate 16 mg 03/30/21 06:00 Nimbex 20mg/10 Ml Vial (High Risk Med) IV 03/30/21 06:01 .STK-MED ONE Methylprednisolone Sodium 0 mg 03/26/21 16:14 03/26/21 16:24 Succinate 125 mg/ Sterile IV 03/26/21 16:15 125 mg Water 2 ml STAT ONE Administration Methylprednisolone Sodium 0 mg 03/27/21 00:00 03/29/21 06:57 Succinate 60 mg/ Sterile Water IV 04/26/21 00:00 60 mg 2 ml Q6HT ANUJ Administration Methylprednisolone Sodium 0 mg 03/29/21 12:00 03/31/21 17:15 Succinate 80 mg/ Sterile Water IV 04/28/21 11:59 80 mg 2 ml Q6HT ANUJ Administration Diltiazem HCl 180 mg 03/27/21 10:00 03/31/21 08:50 Cardizem Cd 180 Mg PO 04/26/21 09:59 Not Given DAILY ANUJ Diltiazem HCl 10 mg 03/31/21 03:37 03/31/21 05:08 Cardizem Iv 50 Mg/10 Ml IV 04/30/21 03:36 10 mg QD@0600 ANUJ Administration Diltiazem HCl 10 mg 04/01/21 10:00 Cardizem Iv 50 Mg/10 Ml IV 04/30/21 03:36 DAILY ANUJ Enoxaparin Sodium 30 mg 03/27/21 01:23 03/29/21 09:01 Enoxaparin Sodium SQ 04/26/21 01:22 30 mg DAILY ANUJ Administration Enoxaparin Sodium 80 mg 03/31/21 10:00 03/31/21 09:03 Enoxaparin Sodium SQ 04/30/21 09:59 80 mg DAILY ANUJ Administration Fentanyl Citrate Confirm 03/30/21 06:18 Sublimaze 100 Mcg/2 Ml Administered 03/30/21 06:19 Dose 100 mcg .ROUTE .STK-MED ONE Fentanyl Citrate 100 mcg 03/30/21 06:00 Sublimaze 100 Mcg/2 Ml IV 03/30/21 06:01 .STK-MED ONE Furosemide Confirm 03/30/21 00:05 Lasix 20 Mg/2 Ml Administered 03/30/21 00:06 Dose 20 mg .ROUTE .STK-MED ONE Furosemide 20 mg 03/30/21 00:15 03/30/21 00:19 Lasix 20 Mg/2 Ml IV 03/30/21 00:16 20 mg ONCE ONE Administration Furosemide Confirm 03/30/21 05:07 Lasix 40 Mg/4 Ml Administered 03/30/21 05:08 Dose 40 mg .ROUTE .STK-MED ONE Furosemide 40 mg 03/30/21 05:15 03/30/21 05:15 Lasix 40 Mg/4 Ml IV 03/30/21 05:16 40 mg STAT ONE Administration Heparin Sodium (Beef Lung) Confirm 03/30/21 06:49 Heparin 5000 Units/0.5 Ml (High Risk Med) Administered 03/30/21 06:50 Dose 5,000 unit .ROUTE .STK-MED ONE Heparin Sodium (Beef Lung) 5,000 unit 03/30/21 06:00 Heparin 5000 Units/0.5 Ml (High Risk Med) IV 03/30/21 06:01 .STK-MED ONE Ceftriaxone Sodium/Dextrose 2 g in 50 mls @ 100 mls/hr 03/26/21 20:08 03/26/21 20:29 Rocephin 2 Gm-D5w 50ml Bag IV 03/26/21 20:37 100 mls/hr STAT STA 100 mls/hr Administration Ceftriaxone Sodium/Dextrose Confirm 03/26/21 20:27 Rocephin 2 Gm-D5w 50ml Bag Administered 03/26/21 20:28 Dose 2 g in 50 mls @ ud IV .STK-MED ONE Sodium Chloride 1,000 mls @ 100 mls/hr 03/26/21 22:15 03/26/21 22:24 Sodium Chloride 0.9% 1000 Ml IV 04/25/21 22:14 100 mls/hr .Q10H ANUJ Administration Azithromycin 500 mg in 250 mls @ 125 mls/hr 03/27/21 07:00 03/27/21 07:03 Zithromax 500 Mg/ 250 Ml Nacl Premix IV 03/27/21 08:59 125 mls/hr NOW ONE Administration Ceftriaxone Sodium/Dextrose 1 g in 50 mls @ 100 mls/hr 03/27/21 10:00 03/31/21 09:03 Rocephin 1 Gm-D5w 50 Ml Bag IV 04/02/21 09:59 100 mls/hr Q24H10 ANUJ Administration Potassium Chloride/Sodium Chloride 1,000 mls @ 50 mls/hr 03/27/21 08:00 03/30/21 17:40 Sodium Chloride 0.9% W/ 20 Meq Kcl/Liter IV 04/26/21 07:59 150 mls/hr .Q20H ANUJ Infusion Azithromycin 500 mg in 250 mls @ 250 mls/hr 03/28/21 10:00 03/31/21 09:36 Zithromax 500 Mg/ 250 Ml Nacl Premix IV 04/27/21 09:59 250 mls/hr Q24H10 ANUJ Administration Sodium Chloride Confirm 03/30/21 06:14 Sodium Chloride 0.9% 250 Ml Administered 03/30/21 06:15 Dose 250 mls @ ud IV .STK-MED ONE Sodium Chloride Confirm 03/30/21 06:51 Sodium Chloride 0.9% 1000 Ml Administered 03/30/21 06:52 Dose 1,000 mls @ ud .ROUTE .STK-MED ONE Fentanyl Citrate 1,500 mcg/ 150 mls @ 3.37 mls/hr 03/30/21 07:15 03/31/21 18:55 Sodium Chloride IV 04/04/21 07:14 2 mcg/kg/hr .Q24H ANUJ 13.48 mls/hr Administration Protocol 0.5 MCG/KG/HR Midazolam HCl 50 mg/ Sodium 250 mls @ 20 mls/hr 03/30/21 07:15 03/31/21 11:33 Chloride IV 04/29/21 07:14 4 mg/hr .[id number] PRN 20 mls/hr SEDATION Administration Protocol 4 MG/HR Cisatracurium Besylate 200 mg/ 200 mls @ 12.132 mls/hr 03/30/21 07:30 03/31/21 07:23 Dextrose IV 04/29/21 07:29 3 mcg/kg/min .[id number] ANUJ 12.132 mls/hr Administration Protocol 3 MCG/KG/MIN Sodium Chloride 1,000 mls @ 50 mls/hr 03/30/21 14:00 03/31/21 13:42 Sodium Chloride 0.9% 1000 Ml IV 04/29/21 13:59 Not Given .Q20H ANUJ Diltiazem HCl 100 mls @ 5 mls/hr 03/31/21 15:09 03/31/21 17:57 Cardizem Drip 100 Mg/100 Ml D5w IV 04/30/21 15:08 15 mg/hr .Q20H PRN 15 mls/hr HEART RATE/ A-FIB Titration Protocol 5 MG/HR Lorazepam Confirm 03/30/21 00:05 Ativan 1 Mg Administered 03/30/21 00:06 Dose 1 mg .ROUTE .STK-MED ONE Lorazepam 1 mg 03/30/21 00:15 03/30/21 00:19 Ativan 1 Mg PO 03/30/21 00:16 1 mg ONCE ONE Administration Losartan Potassium 100 mg 03/27/21 10:00 03/31/21 08:50 Cozaar 50 Mg PO 04/26/21 09:59 Not Given DAILY ANUJ Methylprednisolone Sodium Succinate Confirm 03/26/21 16:21 Solu-Medrol Administered 03/26/21 16:22 Dose 125 mg .ROUTE .STK-MED ONE Methylprednisolone Sodium Succinate Confirm 03/27/21 00:51 Solu-Medrol Administered 03/27/21 00:52 Dose 125 mg .ROUTE .STK-MED ONE Methylprednisolone Sodium Succinate Confirm 03/27/21 06:32 Solu-Medrol Administered 03/27/21 06:33 Dose 125 mg .ROUTE .STK-MED ONE Metoprolol Tartrate Confirm 03/30/21 06:54 Lopressor 5 Mg/5 Ml Injection Administered 03/30/21 06:55 Dose 5 mg IV .STK-MED ONE Metoprolol Tartrate 2.5 mg 03/30/21 06:00 Lopressor 5 Mg/5 Ml Injection IV 03/30/21 06:01 .STK-MED ONE Metoprolol Tartrate 5 mg 03/31/21 08:00 03/31/21 13:22 Lopressor 5 Mg/5 Ml Injection IV 04/30/21 07:59 5 mg BID ANUJ Administration Midazolam HCl Confirm 03/30/21 05:27 Versed 5 Mg/5 Ml Administered 03/30/21 05:28 Dose 5 mg .ROUTE .STK-MED ONE Midazolam HCl Confirm 03/30/21 05:42 Versed 5 Mg/5 Ml Administered 03/30/21 05:43 Dose 5 mg .ROUTE .STK-MED ONE Midazolam HCl Confirm 03/30/21 06:14 Versed 50 Mg/ 10 Ml Mdv Administered 03/30/21 06:15 Dose 50 mg .ROUTE .STK-MED ONE Midazolam HCl 7 mg 03/30/21 06:00 Versed 5 Mg/5 Ml IV 03/30/21 06:01 .STK-MED ONE Morphine Sulfate 4 mg 03/30/21 03:57 03/30/21 04:01 Morphine Sulfate 4 Mg Inj IV 04/04/21 03:56 4 mg Q4H PRN PRN Administration PAIN Nitroglycerin Confirm 03/30/21 06:50 Nitro-Bid 2% Ud Packets Administered 03/30/21 06:51 Dose 1 gm .ROUTE .STK-MED ONE Nitroglycerin 1 gm 03/30/21 06:00 Nitro-Bid 2% Ud Packets TOP 03/30/21 06:01 .STK-MED ONE Breztri Inhaler 2 each 03/27/21 08:00 03/31/21 07:01 IH 04/26/21 07:59 Not Given BIDRT ANUJ Potassium Chloride 40 meq 03/26/21 22:12 03/26/21 22:23 Klor Con 10 Meq PO 03/26/21 22:13 40 meq STAT ONE Administration Potassium Chloride Confirm 03/26/21 22:15 Klor Con 10 Meq Administered 03/26/21 22:16 Dose 40 meq PO .STK-MED ONE Sterile Water Confirm 03/26/21 16:21 Sterile H2o 10 Ml Administered 03/26/21 16:22 Dose 10 ml IJ .STK-MED ONE Sterile Water Confirm 03/27/21 00:51 Sterile H2o 10 Ml Administered 03/27/21 00:52 Dose 10 ml IJ .STK-MED ONE Sterile Water Confirm 03/27/21 06:32 Sterile H2o 10 Ml Administered 03/27/21 06:33 Dose 10 ml IJ .STK-MED ONE Succinylcholine Chloride 100 mg 03/30/21 06:00 Quelicin Fliptop 200 Mg/10 Ml IV 03/30/21 06:01 .STK-MED ONE Intake & Output (Last 24 hours) 03/29/21 03/30/21 03/31/21 04/01/21 11:59 11:59 11:59 11:59 Intake Total 4472 3271 3730 1423 Output Total 1225 1700 1500 1350 Balance 3247 1571 2230 73 Weight 67.4 kg Microbiology Results (Last 24 hours) 03/26/21 16:15 Blood Blood Culture Gram Stain - Final Not Reportable 03/26/21 16:15 Blood Blood Culture - Final NO GROWTH 03/26/21 16:25 Blood Blood Culture Gram Stain - Final Not Reportable 03/26/21 16:25 Blood Blood Culture - Final NO GROWTH Laboratory Results (Last 24 hours) 03/31/21 03/31/21 03/31/21 10:48 06:20 06:20 Segmented Neutrophils 89 H Band Neutrophils 4 H Lymphocytes (Manual) 4 L Monocytes (Manual) 3 Toxic Granulation 2+ Platelet Estimate NORMAL RBC Morphology ABNORMAL Anisocytosis 1+ Puncture Site RIGHT RADIAL pCO2 44 pO2 110 H Base Excess -0.8 O2 Saturation 97.1 ABG pH 7.36 ABG HCO3 24.9 ABG O2 Sat (Measured) 99.4 Julian Test NOT APPLICABLE A-a Gradient 334 a/A Ratio 0.25 Hemoglobin 13.3 Carboxyhemoglobin 1.1 Methemoglobin 1.2 L Potassium 5.2 H Temperature 37.0 POC O2 Flow Rate 70 Vent Mode A/C Tidal Volume 650 PEEP 8.0 Procalcitonin 1.000 H Orders (Last 24 hours) Category Date Time Status Miscellaneous Nursing Order ROUTINE Care 04/01/21 05:00 Completed Consult Pulmonology ROUTINE Cons 03/31/21 07:59 Completed ABG [ARTERIAL BLOOD GASES] Stat Lab 03/31/21 10:48 Completed Acetaminophen 650 mg [Feverall 650 mg] Med 03/31/21 09:20 Discontinued 650 mg MO Q4H PRN PRN Diltiazem HCl 100 mg/100 ml [Cardizem Drip 100 mg/100 Med 03/31/21 15:09 Discontinued ml D5w] 100 ml IV 5 mg/hr Diltiazem HCl 50 mg/10 ml [Cardizem IV 50 MG/10 ML Med 04/01/21 10:00 Discontinued *] 10 mg IV DAILY Enoxaparin Sodium [Enoxaparin Sodium] Med 03/31/21 10:00 Discontinued 80 mg SQ DAILY Metoprolol Tartrate 5 mg/5 ml* [Lopressor 5 mg/5 ml Med 03/31/21 08:00 Discontinued Injection] 5 mg IV BID Patient Care Notes (Last 24 hours) 03/31/21 18:22 Nursing Note by Teodora Olivera continue to wait on bed availability at [facility] and [facility]. Initialized on 03/31/21 18:22 - END OF NOTE 03/31/21 16:10 (created 03/31/21 17:11) Nursing Note by Teodora Olivera nimbex drip off. Initialized on 03/31/21 17:11 - END OF NOTE 03/31/21 15:31 Nursing Note by Teodora Olivera dr. at bedside, orders given to dc nimbex drip, wean sedation and dc in am in preparation for sbt tomorrow. cardizem drip -titrate for heart rate and blood pressure. Initialized on 03/31/21 15:31 - END OF NOTE 03/31/21 13:20 Nursing Note by Teodora Olivera pt having paroxysmal runs of afib rate 140s. hr sustaining sr 120s. dr. collins notified and new order for lopressor 5mg iv. Initialized on 03/31/21 13:20 - END OF NOTE 03/31/21 10:46 Nursing Note by Teodora Olivera spoke with dr. jaimes by phone and updated. new orders to decrease ivf. Initialized on 03/31/21 10:46 - END OF NOTE 03/31/21 10:02 Nursing Note by Teodora Olivera waiting on bed at [facility]. dr collins has spoken with their [employer] hrms developer and we are now waiting on bed to become available. continue to wait on [facility] as well. Initialized on 03/31/21 10:02 - END OF NOTE Bed available at [facility]. Patient is transferred to [place] at 20.15vhrs - Vitals & Intake/Output Vital Signs: Vital Signs Temperature 98.9 F 03/31/21 20:05 Pulse Rate 107 H 03/31/21 20:07 Respiratory Rate 20 03/31/21 20:05 Blood Pressure 107/76 03/31/21 20:05 O2 Sat by Pulse Oximetry 96 03/31/21 20:05 Intake & Output: Intake & Output 03/29/21 03/30/21 03/31/21 04/01/21 11:59 11:59 11:59 11:59 Intake Total 4472 3271 3730 1423 Output Total 1225 1700 1500 1350 Balance 3247 1571 2230 73 Weight 67.4 kg - Lab Result Diagrams: 03/31/21 06:20 03/31/21 06:20 Lab Results-Last 24 Hrs: Lab Results-Last 24 Hours 03/31/21 03/31/21 03/31/21 Range/Units 06:20 06:20 10:48 Segmented Neutrophils 89 H (36.-66.) % Band Neutrophils 4 H (0.0-2.0) % Lymphocytes (Manual) 4 L (24-44) % Monocytes (Manual) 3 (0.0-12.0) % Toxic Granulation 2+ Platelet Estimate NORMAL (NORMAL) RBC Morphology ABNORMAL Anisocytosis 1+ Puncture Site RIGHT RADIAL pCO2 44 (35-45) mmHg pO2 110 H (75-100) mmHg Base Excess -0.8 (-2.0-2.0) O2 Saturation 97.1 (94-100) g/dF ABG pH 7.36 (7.35-7.45) ABG HCO3 24.9 (22-28) ABG O2 Sat (Measured) 99.4 (95-100) % Julian Test NOT APPLICABLE A-a Gradient 334 a/A Ratio 0.25 Hemoglobin 13.3 Carboxyhemoglobin 1.1 (0.0-6.9) % THgb Methemoglobin 1.2 L (1.4-1.5) % Potassium 5.2 H (3.5-5.1) Temperature 37.0 C POC O2 Flow Rate 70 % Vent Mode A/C Tidal Volume 650 cc PEEP 8.0 cmH2O Procalcitonin 1.000 H (0.030-0.080) ng/mL Micro Results-Entire Visit: Microbiology 03/26/21 16:15 Blood Culture Gram Stain - Final Blood Not Reportable Blood Culture - Final NO GROWTH 03/26/21 16:25 Blood Culture Gram Stain - Final Blood Not Reportable Blood Culture - Final NO GROWTH - Radiology Exams Ordered Rad Exams-Entire Visit: Radiology Procedures Category Date Time Status Portable Chest [CHEST 1 VIEW (PORTABLE)] DAILY Exams 03/31/21 06:00 Completed Portable Chest [CHEST 1 VIEW (PORTABLE)] Stat Exams 03/30/21 08:22 Completed - Procedures and Test Procedures and Tests throughout Hospitalization: Therapy Orders & Screens 03/26/21 21:43 Respiratory Therapy Assessment DAILY Comment: 03/27/21 07:05 Respiratory MDI BID Comment: Diagnosis: COPD exacerbation, pneumaonia, hypokalemia, hyponatremia, leukocytosis, ple 03/27/21 18:20 Oxygen Nasal Cannula 2 lpm Comment: Diagnosis: COPD exacerbation, pneumaonia, hypokalemia, hyponatremia, leukocytosis, ple 03/30/21 00:26 BiPap/CPAP STAT Comment: Diagnosis: COPD exacerbation, pneumaonia, hypokalemia, hyponatremia, leukocytosis, ple 03/30/21 06:13 Intubate Patient STAT Comment: Diagnosis: COPD exacerbation, pneumaonia, hypokalemia, hyponatremia, leukocytosis, ple Ventilator Management Q4H Comment: Diagnosis: COPD exacerbation, pneumaonia, hypokalemia, hyponatremia, leukocytosis, ple 03/30/21 07:22 EKG STAT Comment: Diagnosis: COPD exacerbation, pneumaonia, hypokalemia, hyponatremia, brianna kocytosis, ple 03/30/21 09:47 EKG OM.NOW Comment: Diagnosis: COPD exacerbation, pneumaonia, hypokalemia, hyponatremia, leukocytosis, ple Discharge Exam Eye Exam: PERRL Respiratory Exam: diminished breath sounds, other (on ventilator) Cardiovascular Exam: tachycardia Gastrointestinal/Abdomen Exam: soft Final Diagnosis/Problem List - Final Discharge Diagnosis/Problem (1) Acute respiratory failure with hypoxia and hypercapnia Status: Acute Code(s): J96.01 - ACUTE RESPIRATORY FAILURE WITH HYPOXIA; J96.02 - ACUTE RESPIRATORY FAILURE WITH HYPERCAPNIA (2) ST elevation (STEMI) myocardial infarction Status: Acute Code(s): I21.3 - ST ELEVATION (STEMI) MYOCARDIAL INFARCTION OF [facility] SITE (3) COPD exacerbation Status: Acute Code(s): J44.1 - CHRONIC OBSTRUCTIVE PULMONARY DISEASE W (ACUTE) EXACERBATION (4) Pneumonia Status: Acute Code(s): J18.9 - PNEUMONIA, UNSPECIFIED ORGANISM - Discharge Discharge Date: 03/31/21 Disposition: DC TO [facility] Condition: Stable Prescriptions: No Action Losartan Potassium 100 mg PO DAILY Diltiazem HCl [Dilt-Xr] 180 mg PO DAILY Instructions: General (DC) Follow up with: CAREY RDZ [Primary Care Provider] -
[2021-04-01] MEDS ORDERED: Cardizem IV 50 MG/10 ML IV SCH (10:00)
--- NOTE | 2021-04-01 14:15 | CONS ---
CONSULT DATE: 03/31/2021 REASON FOR CONSULT: Evaluation of respiratory failure, shortness of breath. HISTORY: Juarez Brewer is a 70 year-old male with history of chronic obstructive pulmonary disease, followed in the past by Dr. Matamoros, who has been hospitalized with complaints of shortness of breath. The patient was initially being treated for chronic obstructive pulmonary disease exacerbation. He had a CT chest performed about five days ago that showed significant fibrotic/honeycomb changes. He did develop positive cardiac enzymes with shortness of breath leading to intubation. Post-intubation the patient was noted to have acceleration in his BNP level. He was receiving fluids which were reduced. In addition, he has been treated with diuretics. 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 The patient has shown improvement to the point that his FIO2 was reduced down to 50%. The patient also had a low grade fever and is currently being covered with broad spectrum antibiotics with improvement in fever. He does have reduced effort tolerance. According to family, the patient uses bronchodilators at home. I do not believe he is on any supplemental oxygen. He has been a smoker up until recently. The patient had open heart surgery about 11 years ago. He is followed by Dr. Hutson. His troponins have been positive and are trending up. A transfer order was requested. However due to lack of bed availability he is currently being treated at this facility. PAST MEDICAL HISTORY: Positive for coronary artery disease, hypertension, chronic obstructive pulmonary disease, electrolyte imbalance. PAST SURGICAL HISTORY: As above. PERSONAL AND SOCIAL HISTORY: He lives with family, former smoker. MEDICATIONS: Home and current medications are reviewed. ALLERGIES: NKDA. PHYSICAL EXAMINATION: An elderly, frail male who is intubated, sedated, chmically paralyzed. Vital signs noted. VITAL SIGNS: Temperature F, heart rate , blood pressure / mmHg and saturating HEENT: Normocephalic. Oral exam limited. ET tube and NG tube are in place. NECK: Supple. CVS: First and second heart sounds reveal mild tachycardia. RESPIRATORY: Shows diminished breath sounds, crackles are heard. ABDOMEN: Soft. EXTREMITIES: No edema is noted. LABORATORY DATA AND TESTS: His assist control rate of 14, tidal volume 650, POC O2 flow rate of 70%, PEEP of 8. The pH 7.36, pCO2 44, pO2 110, FIO2 down to 50%. White count is 27.3, hemoglobin 14.1, hematocrit 45, PLT 314. Sodium 148, potassium 5.2, chloride 118, bicarb 22, glucose 135, BUN 37, creatinine 1.2. Blood cultures are negative to date. Chest x-ray and radiology tests reviewed. BNP 40114. ASSESSMENT: This is a 70 year old male admitted with: 1) Acute severe hypoxic respiratory failure with improvement in oxygenation since mechanical ventilation. 2) Likely community acquired pneumonia. 3) Chronic obstructive pulmonary disease with exacerbation. 4) Congestive heart failure with decompensation. 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 RECOMMENDATIONS: 1) I agree with present treatment. 2) The patient's FIO2 has been reduced down to 50%. 3) Routine vent orders while being on vent. 4) IV antibiotics, steroids and bronchodilators. 5) Advised to keep fluids at minimum, keep output more than intake if possible. 6) Cardiology consultation has been requested with Dr. Hutson, his regular management consultant. 7) Will discontinue paralytics at this point, possible awaken tomorrow morning followed by spontaneous breathing trial. 8) Will require comparison to previous diagnostic radiologic studies upon discharge followed by his primary dressmaker garment fitter per his office. The patient's prognosis remains guarded due to his multiple comorbidities. I will be available to assist in his care as needed. I discussed this with the patient's and daughter.
== END 2021-03-31 20:15 | disposition home or self-care (01) | DRG 189 ==
LOC: ED 15:45 → UNDOADMOB 22:41 → OBSVTOIN 22:41 → INTOOBSV 22:41 → MED SURG 22:41 → INTOOBSV 03-29 23:55 → MED SURG 03-29 23:55 → UNDOADMOB 03-29 23:55 → OBSVTOIN 03-29 23:55 → MED SURG 03-29 23:56 → ICU 03-29 23:56 → MED SURG 03-30 07:15 → ICU 03-30 07:15 → UNDODISIN 03-31 20:15
PROVIDERS: ADMIT Family Medicine; ATTEND Family Medicine
DX: J96.01 Acute respiratory failure with hypoxia (principal); I21.3 ST elevation (STEMI) myocardial infarction of unspecified site; J18.9 Pneumonia, unspecified organism; J44.1 Chronic obstructive pulmonary disease with (acute) exacerbation; E87.1 Hypo-osmolality and hyponatremia; J96.02 Acute respiratory failure with hypercapnia; I11.0 Hypertensive heart disease with heart failure; I50.9 Heart failure, unspecified; R53.1 Weakness; Z79.899 Other long term (current) drug therapy; I25.10 Atherosclerotic heart disease of native coronary artery without angina pectoris; Z95.1 Presence of aortocoronary bypass graft; E87.6 Hypokalemia; Z20.822 Contact with and (suspected) exposure to COVID-19
CPT/HCPCS: 31500; 36000; 36415; 36600; 71045; 71260; 80048; 80053; 82375; 82803; 83605; 83735; 83880; 84132; 84145; 84484; 85025; 85027; 85379; 87040; 93005; 93041; 93268; 94002; 94003; 94640; 94760; 94770; 96374; 99284; G0378; U0003; 94762; J0330; J0456; J0696; J1644; J1650; J1940; J2250; J2270; J2930; J3010; J7609; A9270-GY